=== PATIENT | female | born 1990 | race Caucasian/White ===

== ENCOUNTER 2020-03-04 06:49 | Outpatient (REF) | payer OTHER, SELFPAY ==
[2020-03-04 08:02] LABS: HCG Quantitative 2543 mIU/mL
== END 2020-03-04 06:50 | disposition home or self-care (01) ==
LOC: HO.LAB 06:49
PROVIDERS: PCP Internal Medicine; Visit Provider Advanced Practice Midwife
DX: O00.101 Right tubal pregnancy without intrauterine pregnancy (principal); Z98.890 Other specified postprocedural states
CPT/HCPCS: 36415; 84702; 99213

== ENCOUNTER 2020-03-30 15:12 | Outpatient (REF) | payer OTHER, SELFPAY ==
[2020-03-30 16:25] LABS: HCG Quantitative 247 mIU/mL
== END 2020-03-30 15:13 | disposition home or self-care (01) ==
LOC: HO.LAB 15:12
PROVIDERS: PCP Internal Medicine; Visit Provider Obstetrics & Gynecology
DX: O00.101 Right tubal pregnancy without intrauterine pregnancy (principal); K66.1 Hemoperitoneum
CPT/HCPCS: 84702

== ENCOUNTER 2020-04-21 17:08 | Outpatient (REF) | payer OTHER, SELFPAY ==
[2020-04-21 18:26] LABS: HCG Quantitative < 2 mIU/mL
== END 2020-04-21 17:09 | disposition home or self-care (01) ==
LOC: HO.LAB 17:08
PROVIDERS: PCP Internal Medicine; Visit Provider Obstetrics & Gynecology
DX: O00.101 Right tubal pregnancy without intrauterine pregnancy (principal); K66.1 Hemoperitoneum
CPT/HCPCS: 84702

== ENCOUNTER 2020-05-20 08:15 | Outpatient (REF) | payer OTHER, SELFPAY ==
[2020-06-12 09:17] LABS: CT PCR NOT DETECTED (Not Detect.); NG PCR NOT DETECTED (Not Detect.)
== END 2020-05-20 08:16 | disposition home or self-care (01) ==
LOC: HO.LAB 08:15
PROVIDERS: PCP Internal Medicine; Visit Provider Obstetrics & Gynecology
DX: N94.12 Deep dyspareunia (principal); R10.31 Right lower quadrant pain
CPT/HCPCS: 81002; 81025; 87491; 87591; 99212

== ENCOUNTER 2020-06-15 08:26 | Outpatient (REF) | payer OTHER, SELFPAY ==
--- NOTE | 2020-06-15 08:30 | US_ITS ---
EXAMINATION: US PELVIS COMPLETE CLINICAL INFORMATION: Dyspareunia. Previous history of ruptured ectopic and laparoscopic right salpingectomy. COMPARISON: Ultrasound pelvis 02/22/2020. TECHNIQUE: Transabdominal and transvaginal ultrasound of the pelvis is performed. FINDINGS: The uterus is anteverted measuring 9.4 cm in length, 3.5 cm in AP and 5.1 cm in transverse dimension. There is a slightly arcuate appearance to endometrial cavity. There is a heterogeneous-appearing myometrium and a tiny cyst in the endometrial measuring 0.3 x 0.3 x 0.2 cm. Endometrial thickness is 1.2 cm. There are small nabothian cysts in the cervix. Right ovary measures 3.9 x 1.7 x 3.3 cm and volume 11.0 mL. There are punctate echogenic foci seen. Previously right ovary measured 2.9 x 2.2 x 3.1 cm and volume 14.2 mL. The left ovary measures 4.0 x 2.3 x 2.8 cm and volume 13.5 mL. Small follicle cysts seen. A dominant follicle measures 2.1 x 1.8 x 1.9 cm. Small punctate echogenic foci are seen in the left ovary. Previously left ovary measured 1.4 x 1.8 x 2.7 cm and volume 2.6 mL. There is no free fluid in the cul-de-sac. US/US pelvic complete IMPRESSION: Heterogeneous myometrium but no focal uterine lesions seen. The endometrial cavity has an arcuate shape appearance. A small 0.3 cm cyst is seen within the endometrium. Nabothian cysts in the cervix. There are bilateral punctate echogenic foci in the ovaries. Dominant follicle left ovary measures 2.1 x 1.8 x 1.9 cm. There is no free fluid in the cul-de-sac.
== END 2020-06-15 08:27 | disposition home or self-care (01) ==
LOC: HO.HMGCX 08:26
PROVIDERS: PCP Internal Medicine; Visit Provider Obstetrics & Gynecology
DX: N94.12 Deep dyspareunia (principal)
CPT/HCPCS: 76830; 76856

== ENCOUNTER → 2020-06-21 13:08 | Outpatient (BNVA) | payer OTHER, SELFPAY | PROVIDERS: PCP Internal Medicine; Visit Provider Obstetrics & Gynecology ==

== ENCOUNTER 2020-11-11 06:29 | Outpatient (REF) | payer OTHER, SELFPAY ==
[2020-11-11 08:07] LABS: HCG Quantitative 191 mIU/mL
[2020-11-11 08:50] LABS: Glucose Urine UA NEG (NEG); Leukocyte Esterase Urine NEG (NEG); Nitrite Urine NEG (NEG); Specific Gravity - Urine >= 1.030 (1.005-1.025); Urine Blood NEG (NEG); Urine Ketones NEG (NEG); Urine Protein NEG (NEG-TRACE)
[2020-11-11 08:51] LABS: Appearance Urine CLEAR; Color Urine YELLOW
== END 2020-11-11 06:30 | disposition home or self-care (01) ==
LOC: HO.LAB 06:29
PROVIDERS: PCP Internal Medicine; Visit Provider Obstetrics & Gynecology
DX: O36.80X0 Pregnancy with inconclusive fetal viability, not applicable or unspecified (principal); O26.899 Other specified pregnancy related conditions, unspecified trimester; R30.0 Dysuria; O09.10 Supervision of pregnancy with history of ectopic pregnancy, unspecified trimester; Z3A.00 Weeks of gestation of pregnancy not specified
CPT/HCPCS: 36415; 81003; 84702

== ENCOUNTER 2020-11-13 09:32 | Outpatient (REF) | payer OTHER, SELFPAY ==
[2020-11-13 10:08] LABS: HCG Quantitative 335 mIU/mL
== END 2020-11-13 09:33 | disposition home or self-care (01) ==
LOC: HO.ED 09:32
PROVIDERS: PCP Internal Medicine
DX: Z32.01 Encounter for pregnancy test, result positive (principal); O00.101 Right tubal pregnancy without intrauterine pregnancy; O26.891 Other specified pregnancy related conditions, first trimester; K66.1 Hemoperitoneum; Z3A.00 Weeks of gestation of pregnancy not specified
CPT/HCPCS: 36415; 84702

== ENCOUNTER 2020-11-16 13:01 | Outpatient (REF) | payer OTHER, SELFPAY ==
[2020-11-16 15:10] LABS: HCG Quantitative 408 mIU/mL
== END 2020-11-16 13:02 | disposition home or self-care (01) ==
LOC: HO.LAB 13:01
PROVIDERS: Absent Provider Obstetrics & Gynecology; PCP Internal Medicine; Visit Provider Advanced Practice Midwife
DX: Z87.59 Personal history of other complications of pregnancy, childbirth and the puerperium (principal)
CPT/HCPCS: 36415; 84702; 99212

== ENCOUNTER 2020-11-18 14:57 | Outpatient (REF) | payer OTHER, SELFPAY ==
[2020-11-18 16:34] LABS: HCG Quantitative 318 mIU/mL
== END 2020-11-18 14:58 | disposition home or self-care (01) ==
LOC: HO.LAB 14:57
PROVIDERS: PCP Internal Medicine; Visit Provider Advanced Practice Midwife
DX: Z87.59 Personal history of other complications of pregnancy, childbirth and the puerperium (principal)
CPT/HCPCS: 36415; 84702

== ENCOUNTER → 2020-11-21 12:56 | Outpatient (BNVA) | payer OTHER, SELFPAY | PROVIDERS: PCP Internal Medicine; Visit Provider Advanced Practice Midwife ==

== ENCOUNTER 2020-11-23 11:17 | Outpatient (REF) | payer OTHER, SELFPAY ==
--- NOTE | ~2020-11-23 | US_ITS ---
EXAMINATION: US OBSTETRICAL ULTRASOUND CLINICAL INFORMATION: Abnormal quadrants. [Latest HCG 318. COMPARISON: None. LMP: 10/10/2020. Gestational age by maternal dates is 6 weeks 2 days. Estimated date of delivery by maternal dates is 07/17/2021. TECHNIQUE: Transabdominal imaging off pelvis was performed. FINDINGS: The uterus is anteverted with no intrauterine gestational sac, pole or yolk sac seen. Uterus measures 6.52 cm in length, 3.71 cm in AP and 5.43 cm in transverse dimension. Endometrial thickness is 0.22 cm. The right ovary measures 3.48 x 2.20 x 3.4 cm. There is a small corpus luteal cyst measuring 1.5 x 1.3 x 1.2 cm. The left ovary measures 3.0 x 1 0.63 to 1.9 cm and tiny follicular cyst. There is slight increased flow seen to left ovary on color ultrasound. There is trace amount of free fluid. No pelvic mass visualized. US/US OB <= 14 weeks fetus IMPRESSION: No intrauterine seen. No adnexal mass or ectopic seen. Corpus luteal cyst right ovary. The left ovary is unremarkable. There is a trace amount of fluid seen in the cul-de-sac.
--- NOTE | ~2020-11-23 | US_ITS ---
EXAMINATION: US OBSTETRICAL ULTRASOUND CLINICAL INFORMATION: Abnormal quadrants. [Latest HCG 318. COMPARISON: None. LMP: 10/10/2020. Gestational age by maternal dates is 6 weeks 2 days. Estimated date of delivery by maternal dates is 07/17/2021. TECHNIQUE: Transabdominal imaging off pelvis was performed. FINDINGS: The uterus is anteverted with no intrauterine gestational sac, pole or yolk sac seen. Uterus measures 6.52 cm in length, 3.71 cm in AP and 5.43 cm in transverse dimension. Endometrial thickness is 0.22 cm. The right ovary measures 3.48 x 2.20 x 3.4 cm. There is a small corpus luteal cyst measuring 1.5 x 1.3 x 1.2 cm. The left ovary measures 3.0 x 1 0.63 to 1.9 cm and tiny follicular cyst. There is slight increased flow seen to left ovary on color ultrasound. There is trace amount of free fluid. No pelvic mass visualized. US/US OB transvaginal IMPRESSION: No intrauterine seen. No adnexal mass or ectopic seen. Corpus luteal cyst right ovary. The left ovary is unremarkable. There is a trace amount of fluid seen in the cul-de-sac.
== END 2020-11-23 11:18 | disposition home or self-care (01) ==
LOC: HO.HMGCX 11:17
PROVIDERS: PCP Internal Medicine; Visit Provider Advanced Practice Midwife
DX: O09.11 Supervision of pregnancy with history of ectopic pregnancy, first trimester (principal); Z3A.01 Less than 8 weeks gestation of pregnancy
CPT/HCPCS: 76801; 76817

== ENCOUNTER → 2020-11-25 11:02 | Outpatient (BNVA) | payer OTHER, SELFPAY | PROVIDERS: PCP Internal Medicine; Visit Provider Obstetrics & Gynecology ==

== ENCOUNTER → 2020-11-30 14:21 | Outpatient (BNVA) | payer OTHER, SELFPAY | PROVIDERS: PCP Internal Medicine; Visit Provider Obstetrics & Gynecology ==

== ENCOUNTER 2020-12-07 10:24 | Outpatient (REF) | payer OTHER, SELFPAY ==
[2020-12-07 16:08] LABS: HCG Quantitative 30 mIU/mL
== END 2020-12-07 10:25 | disposition home or self-care (01) ==
LOC: HO.LAB 10:24
PROVIDERS: PCP Internal Medicine; Visit Provider Advanced Practice Midwife
DX: O03.9 Complete or unspecified spontaneous abortion without complication (principal); Z87.59 Personal history of other complications of pregnancy, childbirth and the puerperium
CPT/HCPCS: 36415; 84702

== ENCOUNTER 2021-02-15 13:05 | Outpatient (REF) | payer OTHER, SELFPAY ==
[2021-02-15 15:22] LABS: HCG Quantitative < 2 mIU/mL
== END 2021-02-15 13:06 | disposition home or self-care (01) ==
LOC: HO.LAB 13:05
PROVIDERS: PCP Internal Medicine; Visit Provider Advanced Practice Midwife
DX: O00.101 Right tubal pregnancy without intrauterine pregnancy (principal); K66.1 Hemoperitoneum; Z87.59 Personal history of other complications of pregnancy, childbirth and the puerperium
CPT/HCPCS: 36415; 84702

== ENCOUNTER 2021-02-22 13:20 | Outpatient (REF) | payer OTHER, SELFPAY ==
[2021-02-23 09:53] LABS: CT PCR NOT DETECTED (Not Detect.)
[2021-02-23 09:54] LABS: NG PCR NOT DETECTED (Not Detect.)
[2021-02-23 11:01] LABS: BV Int Neg Control Negative (Negative); BV Int Pos Control Positive (Positive)
[2021-02-25 07:07] LABS: HPV mRNA E6/E7 rflx Not Detected (Not Detected)
== END 2021-02-22 13:21 | disposition home or self-care (01) ==
LOC: HO.LAB 13:20
PROVIDERS: PCP Internal Medicine; Visit Provider Advanced Practice Midwife
DX: Z01.411 Encounter for gynecological examination (general) (routine) with abnormal findings (principal); Z11.51 Encounter for screening for human papillomavirus (HPV); Z11.3 Encounter for screening for infections with a predominantly sexual mode of transmission; R10.2 Pelvic and perineal pain; N92.0 Excessive and frequent menstruation with regular cycle; N84.1 Polyp of cervix uteri; N89.8 Other specified noninflammatory disorders of vagina
CPT/HCPCS: 81003; 87480; 87491; 87510; 87591; 87624; 87660; 88142

== ENCOUNTER 2021-03-01 09:51 | Outpatient (REF) | payer OTHER, SELFPAY ==
--- NOTE | ~2021-03-01 | US_ITS ---
EXAMINATION: US PELVIS CLINICAL INFORMATION: Pelvic and perineal pain COMPARISON: Previous pelvic ultrasound June 2020 TECHNIQUE: Ultrasound of the pelvis is performed using both transabdominal and transvaginal transducers along with Doppler. Transvaginal imaging is performed due to inadequate visualization transabdominally. FINDINGS: The uterus is anteverted and measures 7.6 x 3.4 x 5.1 cm in dimension. No focal uterine lesion is seen. Endometrial thickness is normal measuring 0.6 cm. There is a nabothian cyst in the cervix. The ovaries are normal-appearing. The right ovary measures 3.8 x 2 x 3.6 cm. The left ovary measures 2.6 x 2 x 4 cm. There is no fluid in the pelvis. US/US pelvic and transvaginal IMPRESSION: Unremarkable exam.
== END 2021-03-01 09:52 | disposition home or self-care (01) ==
LOC: HO.HMGCX 09:51
PROVIDERS: PCP Internal Medicine; Visit Provider Advanced Practice Midwife
DX: R10.2 Pelvic and perineal pain (principal); N92.0 Excessive and frequent menstruation with regular cycle
CPT/HCPCS: 76830; 76856

== ENCOUNTER 2021-03-15 09:08 | Outpatient (REF) | payer OTHER, SELFPAY ==
[2021-03-18 13:41] LABS: HPV mRNA E6/E7 rflx Not Detected (Not Detected)
== END 2021-03-15 09:09 | disposition home or self-care (01) ==
LOC: HO.LAB 09:08
PROVIDERS: PCP Internal Medicine; Visit Provider Advanced Practice Midwife
DX: N84.1 Polyp of cervix uteri (principal); R10.2 Pelvic and perineal pain; R87.615 Unsatisfactory cytologic smear of cervix; Z87.59 Personal history of other complications of pregnancy, childbirth and the puerperium; Z71.2 Person consulting for explanation of examination or test findings
CPT/HCPCS: 57500; 58558; 87624; 88142; 88305

== ENCOUNTER → 2021-04-05 11:16 | Outpatient (BNVA) | payer OTHER, SELFPAY | PROVIDERS: PCP Internal Medicine; Visit Provider Advanced Practice Midwife ==

== ENCOUNTER 2021-05-03 08:24 | Outpatient (REF) | payer OTHER, SELFPAY ==
[2021-05-04 01:24] LABS: CT PCR NOT DETECTED (Not Detect.); NG PCR NOT DETECTED (Not Detect.)
[2021-05-04 10:14] LABS: BV Int Neg Control Negative (Negative); BV Int Pos Control Positive (Positive)
== END 2021-05-03 08:25 | disposition home or self-care (01) ==
LOC: HO.LAB 08:24
PROVIDERS: PCP Internal Medicine; Visit Provider Obstetrics & Gynecology
DX: Z01.419 Encounter for gynecological examination (general) (routine) without abnormal findings (principal); R10.2 Pelvic and perineal pain; Z20.2 Contact with and (suspected) exposure to infections with a predominantly sexual mode of transmission
CPT/HCPCS: 81003; 81025; 87480; 87491; 87510; 87591; 87660; 99212

== ENCOUNTER 2021-05-25 08:33 | Outpatient (REF) | payer OTHER, SELFPAY ==
--- NOTE | ~2021-05-25 | US_ITS ---
EXAMINATION: US PELVIS CLINICAL INFORMATION: R10.2 - Pelvic and perineal pain COMPARISON: Ultrasound pelvis 03/01/2021 TECHNIQUE: Ultrasound of the pelvis is performed using both transabdominal and transvaginal transducers along with Doppler. Transvaginal imaging is performed due to inadequate visualization transabdominally. FINDINGS: Uterus: The uterus is anteverted and measures 7.9 x 4.2 x 5.1 cm. The double wall endometrial thickness is normal at 10 mm. The uterus is smooth in contour and has normal myometrial echogenicity. No visible fibroid. There is small nabothian cyst in the cervix under 5 mm. Adnexa: Both ovaries are visualized. There is normal color flow to the adnexa. There is no ovarian torsion. There is no pelvic ascites or fluid collection. Trace physiologic fluid adjacent to left ovary. Right ovary measures 3.0 x 2.7 x 2.9 cm. Volume 12.6 mL. Left ovary measures 4.0 x 2.3 x 3.0 cm. Volume 14.4 mL. US/US pelvic and transvaginal IMPRESSION: 1. Uterus: No visible fibroid. Normal endometrial thickness. 2. Adnexa: No adnexal mass or ascites.
== END 2021-05-25 08:34 | disposition home or self-care (01) ==
LOC: HO.HMGCX 08:33
PROVIDERS: PCP Internal Medicine; Visit Provider Obstetrics & Gynecology
DX: R10.2 Pelvic and perineal pain (principal); N88.8 Other specified noninflammatory disorders of cervix uteri
CPT/HCPCS: 76830; 76856

== ENCOUNTER 2021-12-02 07:47 | Outpatient (REF) | payer OTHER, SELFPAY ==
[2021-12-02 08:47] LABS: HCG Quantitative 1263 mIU/mL
== END 2021-12-02 07:48 | disposition home or self-care (01) ==
LOC: HO.LAB 07:47
PROVIDERS: PCP Internal Medicine; Visit Provider Obstetrics & Gynecology
DX: O20.0 Threatened abortion (principal); Z87.59 Personal history of other complications of pregnancy, childbirth and the puerperium
CPT/HCPCS: 36415; 84702

== ENCOUNTER 2021-12-04 08:16 | Emergency (ER) | payer OTHER, SELFPAY ==
[2021-12-04 08:21] VITALS: BP 118/62; PULSE 70; RESP 16; TEMP 36.6; O2SAT 100; BMI 28.1
[2021-12-04 09:03] LABS: HCG Quantitative 2926 mIU/mL
--- NOTE | 2021-12-04 09:45 | ED_ITS ---
HPI - General Adult General Chief complaint: Recheck/Abnormal Lab/Rx Stated complaint: blood test for HCG levels Time Seen by Provider: 12/04/21 09:08 Source: patient Mode of arrival: ambulatory Limitations: no limitations History of Present Illness HPI narrative: Patient is a 31 year old female presenting to the emergency department today for a repeat beta HCG blood draw. Patient states that she was informed she may be on 12/02/[address] Breen recommended that she come get a repeat drawn in 48 hours which would be today. Patient denies any vaginal bleeding, vaginal discharge, pelvic pain, vaginal pain, dizziness, lightheadedness, abdominal pain, nausea, vomiting, fever, chills, blurry vision, double vision, loss of vision, chest pain, difficulty breathing, shortness of b reath, back pain, night sweats, pain with urination, increased urinary frequency, increased urinary urgency, blood in her urine or stool, syncope or a near syncopal episode, recent trauma or falls, bowel incontinence, bladder incontinence, bowel retention, bladder retention, or any other complaints at this time. Relieving factors: none Exacerbating factors: none Associated symptoms: denies other symptoms Treatments prior to arrival: none Related Data Home Medications Medication Instructions Recorded Confirmed multivitamin 1 tab PO DAILY 11/30/20 Allergies Allergy/AdvReac Type Severity Reaction Status Date / Time No Known Allergies Allergy Verified 05/03/21 08:33 Review of Systems Constitutional: Constitutional: Reports no additional constitutional complaints, Denies chills, Denies fever(s) and Denies night sweats Eyes: Eyes: Reports no additional eye complaints, Denies blurry vision, Denies change in vision, Denies diplopia, Denies eye discharge, Denies loss of vision and Denies eye pain ENT: Denies dizziness Cardiovascular: Cardiovascular: Reports no additional cardiovascular complaints, Denies chest pain, Denies lightheadedness, Denies Loss of Consciousness and Denies dyspnea Respiratory: Respiratory: Reports no additional respiratory complaints and Denies dyspnea Gastrointestinal: Gastrointestinal: Reports no additional gastrointestinal complaints, Denies abdominal pain, Denies melena, Denies hematochezia, Denies change in bowel habits and Denies change in stool character Genitourinary: Genitourinary: Denies hematuria, Denies urinary frequency, Denies dysuria, Denies urinary incontinence, Denies urinary hesitancy and Denies urinary urgency Musculoskeletal: Musculoskeletal: Reports no additional musculoskeletal complaints, Denies numbness and Denies tingling Neurologic: Denies dizziness, Denies loss of vision, Denies numbness and Denies tingling Psychiatric: Psychiatric: Reports no additional psychiatric complaints Endocrine: Endocrine: Reports no additional endocrine complaints Hematologic/Lymphatic: Hematologic/Lymphatic: Reports no additional hematologic/lymphatic complaints Allergic/Immunologic: Allergic/Immunologic: Reports no additional allergic/immunologic complaints [facility] Past Medical History Attestation statement: The following information was validated with the patient. Source: old records reviewed Medical History Ruptured right tubal ectopic causing hemoperitoneum Surgical History Hx of laparoscopic partial gastrectomy Family History Family History Father Colon cancer Maternal Grandmother Breast CA Daughter No problems noted. Social History Social History Alcohol intake: never Patient Tobacco Use Status: Never used Tobacco Advance Directives: No Advance Directives Information Provided: No Sexual orientation: Straight/Heterosexual Gender identity: Female Physical Exam ED Vital Signs: Vital Signs - 24 hr 12/04/21 08:21 Temperature 97.9 F Pulse Rate 70 Respiratory Rate 16 Blood Pressure 118/62 Pulse Oximetry 100 Oxygen Delivery Method Room Air BMI result Body Mass Index 28.1 Const General: cooperative, no acute distress, alert and awake Nutritional Appearance: well nourished Orientation/consciousness: patient oriented x3 Limitations: no limitations [facility] Head: Yes normal to inspection and Yes atraumatic Ears: hearing grossly normal bilaterally and external ears normal General nose exam: Normal external nose present, no nasal discharge noted and no epistaxis Face and sinus: Yes normal facial exam, No abrasion and No laceration Mouth: Normal oral and palatal mucosa present, no drooling and no muffled voice Eyes General: appearance normal, both eyes and all related structures Periorbital: periorbital findings normal Eyelids: Yes eyelids normal Conjunctivae: conjunctivae normal Pupils: Equal, round and reactive pupils present EOM: EOMs intact bilaterally Neck Neck: Yes normal visual inspection, Yes full ROM and Yes no lymphadenopathy Chest Chest palpation & inspection: normal inspection of the chest Resp Effort & Inspection: normal respiratory effort and able to speak in complete sentences Auscultation: clear to auscultation bilaterally Cardio Rate: regular rate Rhythm: regular rhythm GI Inspection: Yes normal to inspection Neuro General: patient oriented x3 and moves all extremities Cranial nerves: Yes Equal, round and reactive pupils present Cognition (Neuro): normal cognition Motor exam (neuro): 5/5 motor strength present throughout Sensory Exam: Normal double simultaneous stimulation for sensation Coordination: [id number] test normal Extrem General: Yes normal to inspection, Yes full ROM and Yes capillary refill normal Psych Appearance: grossly normal Mental Status: mental status grossly normal Affect: normal affect Attitude: cooperative Thought process: Normal thought process present Thought content: Normal thought content present Insight: Good insight present (Psych) Medical Decision Making MDM Narrative Medical decision making narrative: Patient is a 31 year old female presenting to the emergency department today for a repeat beta HCG level. Patient's physical exam was unremarkable. Patient's beta HCG level is doubled at 2926. I explained my physical exam findings as well as all test results to the patient. I answered all questions asked by the patient. I stressed the importance of the patient taking her medication as prescribed. I stressed the importance of the patient following up with her primary care provider and her OBGYN, as scheduled. I stressed the importance of the patient returning to the emergency department immediately if she were to d evelop any vaginal bleeding, vaginal discharge, pelvic pain, vaginal pain, dizziness, shortness of breath, difficulty breathing, chest pain, blurry vision, loss of vision, nausea, vomiting, abdominal pain, fever, chills, back pain, or any other complaints. Patient verbalized agreement and understanding with this treatment plan and discharge. Differential Diagnosis Differential Diagnosis: Medical Records Medical records reviewed: Yes I reviewed the patient's medical records. Lab Data Lab results reviewed: Yes I reviewed the patient's lab results. Labs: Lab Results 12/04/21 Range/Units 08:38 Beta HCG, Quant 2926 mIU/mL Discharge Plan Discharge Clinical Impression: Elevated serum hCG Patient Disposition: Home, Self-Care Instructions: (ED) Additional Instructions: Follow up with your primary care provider and your OBGYN. Return to the emerg ency department immediately if your symptoms worsen or if you develop any dizziness, shortness of breath, difficulty breathing, chest pain, blurry vision, loss of vision, nausea, vomiting, abdominal pain, fever, chills, back pain, or any other complaints. Prescriptions: No Action multivitamin Tablet 1 tab PO DAILY Referrals: Lynette James MD [Primary Care Provider] - Sinan Breen MD [Physician] - Print Language: Pashto
== END 2021-12-04 10:07 | disposition home or self-care (01) ==
PROVIDERS: Emergency Provider Emergency Medicine Emergency Medical Services; PCP Internal Medicine
DX: Z32.01 Encounter for pregnancy test, result positive (principal)
CPT/HCPCS: 36415; 84702; 99283

== ENCOUNTER 2021-12-05 14:05 | Emergency (ER) | payer OTHER, SELFPAY ==
--- NOTE | ~2021-12-05 | US_ITS ---
EXAMINATION: US OBSTETRICAL ULTRASOUND CLINICAL INFORMATION: Left adnexal pain . 5 weeks . Bleeding. COMPARISON: 12/23/2020.. LMP: 11/03/2021. Gestational age by maternal dates is 4 weeks 5 days. Estimated date of delivery by maternal dates is 08/10/2022. TECHNIQUE: Transabdominal and endovaginal sonographic imaging of the pelvis. Doppler evaluation with spectral analysis performed. FINDINGS: Uterus measures 6.7 x 4.7 x 7.2 cm. No abnormal endometrial thickening. There are 2 areas of fluid within the region of the endometrial cavity, measuring up to 0.7 cm. No internal contents. MATERNAL ADNEXA: The right maternal ovary measures 4 x 1.4 x 1.9 cm. Normal arterial and venous spectral waveforms. The left maternal ovary measures 5.1 x 3.1 x 3.7 cm. Normal arterial and venous spectral waveforms. There is a prominent appearing simple cyst in the left ovary. Adjacent to the left ovary there is a separate cystic structure with a thick wall in the rim of mild vascularity. This measures 0.8 x 0.6 x 0.5 cm. There is an internal structure which appears to be a yolk sac. No pole identified. As a gestational sac, this has a mean sac diameter of 0.63 cm for a gestational age of 5 weeks 1 day. Trace pelvic ascites. US/US OB <= 14 weeks fetus IMPRESSION: Cystic structure in the left adnexa consistent with a tubal ectopic . There is the appearance of a yolk sac within this structure, though no pole is seen. There is no intrauterine identified, with small areas of fluid in the endometrial canal. This critical result was discussed with Selena Rivera NP by telephone at 12/06/2021 1:25 AM and it was ascertained that the content and urgency of the report was understood at the time of direct communication.
--- NOTE | ~2021-12-05 | US_ITS ---
EXAMINATION: US OBSTETRICAL ULTRASOUND CLINICAL INFORMATION: Left adnexal pain . 5 weeks . Bleeding. COMPARISON: 12/23/2020.. LMP: 11/03/2021. Gestational age by maternal dates is 4 weeks 5 days. Estimated date of delivery by maternal dates is 08/10/2022. TECHNIQUE: Transabdominal and endovaginal sonographic imaging of the pelvis. Doppler evaluation with spectral analysis performed. FINDINGS: Uterus measures 6.7 x 4.7 x 7.2 cm. No abnormal endometrial thickening. There are 2 areas of fluid within the region of the endometrial cavity, measuring up to 0.7 cm. No internal contents. MATERNAL ADNEXA: The right maternal ovary measures 4 x 1.4 x 1.9 cm. Normal arterial and venous spectral waveforms. The left maternal ovary measures 5.1 x 3.1 x 3.7 cm. Normal arterial and venous spectral waveforms. There is a prominent appearing simple cyst in the left ovary. Adjacent to the left ovary there is a separate cystic structure with a thick wall in the rim of mild vascularity. This measures 0.8 x 0.6 x 0.5 cm. There is an internal structure which appears to be a yolk sac. No pole identified. As a gestational sac, this has a mean sac diameter of 0.63 cm for a gestational age of 5 weeks 1 day. Trace pelvic ascites. US/US OB transvaginal IMPRESSION: Cystic structure in the left adnexa consistent with a tubal ectopic . There is the appearance of a yolk sac within this structure, though no pole is seen. There is no intrauterine identified, with small areas of fluid in the endometrial canal. This critical result was discussed with Selena Rivera NP by telephone at 12/06/2021 1:25 AM and it was ascertained that the content and urgency of the report was understood at the time of direct communication.
[2021-12-05 14:57] VITALS: BP 117/63; PULSE 70; RESP 16; TEMP 36.4; O2SAT 100; BMI 28.1
[2021-12-05 20:03] LABS: Hemoglobin 10.4 g/dl (12.0-16.0); Mean Corpuscular HGB Conc 29.7 g/dl (31.0-35.0); Mean Corpuscular Hemoglobin 21.5 pg (27.0-33.0); Mean Corpuscular Volume 72.5 fL (80.0-98.0); Platelet Count 337 X10*3/uL (160-400); Red Blood Count 4.83 X10*6/uL (4.20-5.50); Red Cell Distribution Width 17.2 % (11.0-16.0); White Blood Count 9.7 X10*3/uL (4.8-10.8)
[2021-12-05 20:13] LABS: Anion Gap 14 (12-20); Blood Urea Nitrogen 13 mg/dL (9-16); Calcium 9.1 mg/dL (8.4-10.2); Carbon Dioxide 22 mmol/L (22-29); Chloride 107 mmol/L (96-108); Creatinine Clr Calc Pharmacy 110.2; Estimated Glomerular Filt Rate > 60; Glucose Random 82 mg/dL (60-115); Potassium 3.9 mmol/L (3.3-5.1); Sodium 139 mmol/L (135-145)
[2021-12-05 22:25] VITALS: BP 122/67; PULSE 67; RESP 16; TEMP 37.1; O2SAT 100
--- NOTE | 2021-12-05 23:08 | ED.PREGNANCY ---
HPI - General Chief complaint: Vaginal Bleeding Stated complaint: vaginal bleeding and pain Time Seen by Provider: 12/05/21 14:18 Source: patient Mode of arrival: ambulatory Limitations: no limitations History of Present Illness HPI Narrative: 31-year-old female presents with left lower quadrant abdominal pain and vaginal bleeding that started today. She is approximately 5 weeks and has a history of ectopic and miscarriage. She does not report fevers or chills. MD Complaint: abdominal pain and vaginal bleeding Onset (ago): day(s) (1) Pain Consistency: intermittent Location: pelvis Severity: moderate Severity scale (1-10): 6 Quality: Cramping Relieving factors: none Exacerbating factors: none Associated symptoms: vaginal bleeding Vaginal discharge: none Vaginal bleeding: light Patient : Yes care: followed by OB Related Data Home Medications Medication Instructions Recorded Confirmed multivitamin 1 tab PO DAILY 11/30/20 Allergies Allergy/AdvReac Type Severity Reaction Status Date / Time No Known Allergies Allergy Verified 12/05/21 15:01 Review of Systems Review of Systems: Constitutional: No Fever, No Chills ENT/Mouth: No Ear Pain, No Hoarseness, No sore throat Eyes: No Eye Pain, No Swelling, No Redness, No Foreign Body Cardiovascular: No Chest Pain, No SOB Respiratory: No Cough, No Dyspnea Gastrointestinal: No Nausea, No Vomiting, No Diarrhea, positive abdominal Pain Genitourinary: Positive vaginal bleeding, positive , No Dysuria, No Hematuria Musculoskeletal: No joint pain, No Myalgias, No Joint Swelling Skin: No Skin lacerations, No rash Neuro: No Weakness, No Numbness, No Paresthesias, No Loss of Consciousness, No Dizziness, No Headache Psych: No Anxiety/Panic, No Depression Heme/Lymph: no easy bruising, no Lymphadenopathy Endocrine: No Polyuria, No Polydipsia Yes all other systems are reviewed and are negative [facility] Past Medical History Attestation statement: The following information was validated with the patient. Source: old records reviewed Medical History Ruptured right tubal ectopic causing hemoperitoneum Surgical History Hx of laparoscopic partial gastrectomy Family History Family History Father Colon cancer Maternal Grandmother Breast CA Daughter No problems noted. Social History Social History Alcohol intake: never Patient Tobacco Use Status: Never used Tobacco Advance Directives: No Advance Directives Information Provided: No Patient : Yes Sexual orientation: Straight/Heterosexual Gender identity: Female Physical Exam Vital Signs: Vital Signs: Last Vital Signs Temp 97.9 F 12/06/21 00:00 Pulse 70 12/06/21 00:00 Resp 16 12/06/21 00:00 BP 120/83 12/06/21 00:00 Pulse Ox 100 12/06/21 00:00 O2 Del Method 12/06/21 00:00 BMI result Body Mass Index 28.1 Appearance: Alert. Oriented X3. No acute distress. Eyes: Pupils equal, round and reactive to light. ENT: Pharynx normal. Neck: Normal inspection. Neck supple. CVS: Normal heart rate and rhythm. Pulses normal. Respiratory: No respiratory distress. Breath sounds normal. Abdomen: Soft and left adnexal tenderness. Skin: Skin warm and dry. Normal skin color. Normal skin turgor. Extremities: No lower extremity edema. Gait well-balanced well coordinated. Neuro: No motor deficit. No sensory deficit. Cranial nerves 2-12 intact. Course Course Course Narrative: 31-year-old female presents with suspicion of left-sided ectopic . She has a history of right-sided ectopic with a right salpingectomy. Has had 1 day of cramping and vaginal bleeding. Is being followed by Dr. Nuha Vicente and was last seen on December 02 and given instructions for threatened . Will order ABO and pelvic ultrasound. 01:30 discussion with Radiology, cystic structure in the left adnexa consistent with tubal ectopic. There is a yolk sac within the structure. No pole. No intrauterine identified. 01:35 discussion with patient regarding findings. Emotional support provided. Patient states that she feels comfortable and does not require any pain management at this time. All patient's questions were answered. 01:[address] Breen. Plan is for methotrexate. Detailed discussion with Dr. Breen about methotrexate administration, criteria, and patient teaching. 02:13 discussion with patient regarding methotrexate administration, signs and symptoms indicating need for emergent intervention, need for follow-up hCG on day 4 and 7. Patient agrees to follow-up with Dr. Breen in the office tomorrow. Does understand no intercourse or send strenuous exercise, no folic acid and stop vitamin. No exposure to the sun for approximately 1 week. Consents have been signed. Consultations Consultation #1: Nuha Time: 02:30 MDM - OB/Uterine Contractions MDM Narrative Medical decision making narrative: Threatened , ectopic , Medical Records Attestation: I reviewed the patient's medical records. Lab Data Attestation: I reviewed the patient's lab results. Result diagrams: 12/05/21 19:55 12/05/21 19:55 Labs: Lab Results 12/05/21 12/05/21 12/05/21 Range/Units 19:55 19:55 19:55 WBC 9.7 (4.8-10.8) X10*3/uL RBC 4.83 (4.20-5.50) X10*6/uL Hgb 10.4 L (12.0-16.0) g/dl Hct 35.0 L (37.0-47.0) % MCV 72.5 L (80.0-98.0) fL MCH 21.5 L (27.0-33.0) pg MCHC 29.7 L (31.0-35.0) g/dl RDW 17.2 H (11.0-16.0) % Plt Count 337 (160-400) X10*3/uL MPV 10.0 (9.4-12.3) fL Absolute Nucleated RBC 0.000 (0.0-0.012) X10*3/uL Nucleated RBC % (auto) 0.0 (0.0-0.2) /100WBC Sodium 139 (135-145) mmol/L Potassium 3.9 (3.3-5.1) mmol/L Chloride 107 (96-108) mmol/L Carbon Dioxide 22 (22-29) mmol/L Anion Gap 14 (12-20) BUN 13 (9-16) mg/dL Creatinine 0.75 (0.5-1.4) mg/dL Estim Creat Clear Calc 110.2 Estimated GFR > 60 Random Glucose 82 (60-115) mg/dL Calcium 9.1 (8.4-10.2) mg/dL Total Bilirubin 0.5 (0.0-1.0) mg/dL Direct Bilirubin 0.2 (0.0-0.5) mg/dL AST 16 (5-31) U/L ALT 16 (0-31) U/L Alkaline Phosphatase 50 (39-117) U/L Total Protein 7.6 (6.5-8.0) g/dL Albumin 4.7 (3.5-5.0) g/dL Beta HCG, Quant 3698 mIU/mL Blood Type B Positive Imaging Data ultrasound: Attestation: I personally reviewed and interpreted this imaging study as follows: Radiologist's impression: FINDINGS: Uterus measures 6.7 x 4.7 x 7.2 cm. No abnormal endometrial thickening. There are 2 areas of fluid within the region of the endometrial cavity, measuring up to 0.7 cm. No internal contents. MATERNAL ADNEXA: ? ? The right maternal ovary measures 4 x 1.4 x 1.9 cm.? Normal arterial and venous spectral waveforms. The left maternal ovary measures 5.1 x 3.1 x 3.7 cm.? Normal arterial and venous spectral waveforms. There is a prominent appearing simple cyst in the left ovary. Adjacent to the left ovary there is a separate cystic structure with a thick wall in the rim of mild vascularity. This measures 0.8 x 0.6 x 0.5 cm. There is an internal structure which appears to be a yolk sac. No pole identified. As a gestational sac, this has a mean sac diameter of 0.63 cm for a gestational age of 5 weeks 1 day. Trace pelvic ascites. US/US OB <= 14 weeks fetus IMPRESSION: Cystic structure in the left adnexa consistent with a tubal ectopic . There is the appearance of a yolk sac within this structure, though no pole is seen. There is no intrauterine identified, with small areas of fluid in the endometrial canal. ? This critical result was discussed with Selena Rivera NP by telephone at 12/06/2021 1:25 AM and it was ascertained that the content and urgency of the report was understood at the time of direct communication. Discharge Plan Discharge Clinical Impression: Ectopic Patient Disposition: Home, Self-Care Instructions: Methotrexate (By injection), Ectopic (DC) Additional Instructions: You were evaluated for abdominal pain and vaginal bleeding during pelvic ultrasound indicates an ectopic to the left fallopian tube. We treated you with methotrexate. Please follow the instructions that were discussed with you in detail. No intercourse or strenuous exercise. No folic acid. vitamins. No sun exposure for at least 1 week. No alcohol use for at least 1 week. Please follow-up with Dr. Breen tomorrow. He is expecting you in the office. Please call and the office will give you a time of arrival. You must present on day 4 and day 7 after methotrexate for lab values. Please return to the emergency department immediately for any excessive bleeding, new, concerning, or worsening symptoms. Prescriptions: No Action multivitamin Tablet 1 tab PO DAILY Referrals: Sinan Breen MD [Physician] - 1 day (Call tomorrow for an appointment) Interventions: LWBS Worksheet Last Done: 12/05/21 17:57
[2021-12-05 23:24] LABS: HCG Quantitative 3698 mIU/mL
[2021-12-06] VITALS: BP 120/83; PULSE 70; RESP 16; TEMP 36.6; O2SAT 100
--- NOTE | 2021-12-06 01:58 | P.CONOB_ITS ---
NEUROLOGY EPILEPSY PHYSICIAN - CN: HPI Data of Consult Consult date: 12/06/21 Primary Care Provider: Lynette James MD Consult Narrative Narrative: I was consulted on Maria Dolores Doran who is a 31 year old female who presented to the emergency room with left lower quadrant abdominal pain and mild vaginal bleeding that started few hours prior to presentation.? She is approximately 5 weeks of gestation with a history of ectopic no other additional complaints. HCG on 12/02 was 1263 went up to 2926 on 12/04. The workup done emergency room include the following CBC platelets within normal, Rh positive, hCG 3698. Ultrasound showed no IUP with a left adnexal mass measuring 0.8 x 0.6 x 0.5 cm internal structure appearing like a yolk sac and a gestational sac measuring 0.63 cm , no pole, suspicious for ectopic . 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 Surgical History Surgical History Hx of laparoscopic partial gastrectomy Social History Social History Alcohol intake: never Patient Tobacco Use Status: Never used Tobacco Advance Directives: No Advance Directives Information Provided: No Patient : Yes Sexual orientation: Straight/Heterosexual Gender identity: Female Meds Allergies Allergy/AdvReac Type Severity Reaction Status Date / Time No Known Allergies Allergy Verified 12/05/21 15:01 Home Medications Medication Instructions Recorded Confirmed Last Taken Type multivitamin 1 tab PO DAILY 11/30/20 Unknown History NEUROLOGY EPILEPSY PHYSICIAN Physical Exam Vitals Vital signs: Temp Pulse Resp BP Pulse Ox O2 Del Method 97.9 F 70 16 120/83 100 12/06/21 00:00 12/06/21 00:00 12/06/21 00:00 12/06/21 00:00 12/06/21 00:00 12/06/21 00:00 BMI result Body Mass Index 28.1 Constitutional General Appearance: Healthy appearing, Well-nourished and Well-developed Additional Comments: Exam reported by varun Mullen in the emergency room, abdominal exam to be soft , benign exam NEUROLOGY EPILEPSY PHYSICIAN - Results Labs CBC & Chem 7: 12/05/21 19:55 12/05/21 19:55 Labs: Short CBC 12/05/21 Range/Units 19:55 WBC 9.7 (4.8-10.8) X10*3/uL Hgb 10.4 L (12.0-16.0) g/dl Hct 35.0 L (37.0-47.0) % Plt Count 337 (160-400) X10*3/uL BMP 12/05/21 19:55 Sodium 139 Potassium 3.9 Chloride 107 Carbon Dioxide 22 BUN 13 Creatinine 0.75 Calcium 9.1 Imaging US - abdomen: Radiologist's impression: ITS Impressions Ultrasound 12/06/21 00:55 IMPRESSION: Cystic structure in the left adnexa consistent with a tubal ectopic . There is the appearance of a yolk sac within this structure, though no pole is seen. There is no intrauterine identified, with small areas of fluid in the endometrial canal. This critical result was discussed with Selena Goodman NP by telephone at 12/06/2021 1:25 AM and it was ascertained that the content and urgency of the report was understood at the time of direct communication. Transvaginal US 12/06/21 00:55 IMPRESSION: Cystic structure in the left adnexa consistent with a tubal ectopic . There is the appearance of a yolk sac within this structure, though no pole is seen. There is no intrauterine identified, with small areas of fluid in the endometrial canal. This critical result was discussed with Selena Goodman NP by telephone at 12/06/2021 1:25 AM and it was ascertained that the content and urgency of the report was understood at the time of direct communication. Assessment and Plan (1) Ectopic : Status: Acute Plan Discussed with Selena Goodman NP that since the level of hCG above 3500, and the findings on ultrasound showing a 0.8 mass left adnexal mass with no evidence of intrauterine , the clinical situation is suspicious of ectopic . In addition, discussed with Selena Goodman NP that since the patient clinical situation is stable, minimal abdominal/pelvic pain with benign abdominal findings on physical exam, no pelvic fluid, there is no evidence of ruptured ectopic . Furthermore, since the size of the adnexal mass being less than 3.5 cm, absence of heart rate and hCG less than 5000 with normal platelets and creatinine, I asked Selena Goodman NP to check AST/ALT if within normal, the patient will be a candidate for methotrexate treatment. Recommended to discussed with the patient the following risks and benefits of methotrexate treatment including but not limited to: Failure rate of MTX ~15%, possible exposure of methotrexate teratogenicity to an early intrauterine not diagnosed by ultrasound with the risk of SAB and severe deformities, possibility of a early intrauterine . In addition, I recommended to discuss with the patient the following common side effects of the medication, including skin rash, sensitivity to the sun, indigestion, nausea, sore mouth were discussed with the patient. Less common side effects (occurring in less than 2% of patients) were also discussed a drop in blood cell counts or temporary elevation in liver enzymes. If the patient agrees, to proceed with methotrexate 50 mg/m2 BSA x 1.87 m2 BSA = 93.5 mg methotrexate IM x 1. I recommended to provide the patient with methotrexate Patient information sheet and instruct the patient not to have intercourse or perform strenuous exercises or activities avoid sun exposure The patient is to be given to the instructions to follow up with HCG day 4 and 7 and follow up with an appointment today in the office. Signs and symptoms of ruptured ectopic to be discussed with the patient, she is to call or go to the ER if abdominal pain occurs, Otherwise will follow up with HCG day 4 and repeat HCG day 7 and a follow-up appointment. I spent 30 minutes reviewing the chart, communicating with the ER provider and documenting in the medical record
[2021-12-06 02:18] LABS: Alanine Aminotransferase 16 U/L (0-31); Albumin Level 4.7 g/dL (3.5-5.0); Alkaline Phosphatase 50 U/L (39-117); Aspartate Amino Transferase 16 U/L (5-31); Bilirubin Direct 0.2 mg/dL (0.0-0.5); Bilirubin Total 0.5 mg/dL (0.0-1.0); Total Protein 7.6 g/dL (6.5-8.0)
--- NOTE | 2021-12-06 02:48 | PC.NURSE ---
Selena Rivera JAVA SYSTEMS ANALYST at bedside reviewing indications/recommendations for use of methotrexate due to pt's ectopic .
--- NOTE | 2021-12-06 03:16 | PC.NURSE ---
Per Myke the nursing duct layer supervisor, jony Castillo RN to administer methotrexate to pt following protocol and proper disposal of medication per Trudy protocol since no oncology nurse is on duty at night in the hospital.
[2021-12-06 03:58] VITALS: BP 113/64; PULSE 69; RESP 18; TEMP 36.8; O2SAT 100
--- NOTE | 2021-12-06 03:58 | PC.NURSE ---
pt was not a LWT. pt received treatment in the main ed.
[2021-12-06 04:34] VITALS: BP 105/71; PULSE 60; RESP 16; TEMP 36.9; O2SAT 98
== END 2021-12-06 05:00 | disposition home or self-care (01) ==
PROVIDERS: Emergency Medicine; Emergency Provider Nurse Practitioner Family; PCP Internal Medicine
DX: O20.9 Hemorrhage in early pregnancy, unspecified (principal); Z3A.01 Less than 8 weeks gestation of pregnancy; Z79.899 Other long term (current) drug therapy
CPT/HCPCS: 36415; 76801; 76817; 80048; 80076; 84702; 85027; 86900; 86901; 96372; 99283; 99284; J9250

== ENCOUNTER 2021-12-08 11:55 | Day surgery (SDC) | payer OTHER, SELFPAY ==
[2021-12-08] VITALS (8 sets, daily range): BP systolic 96–121; BP diastolic 57–66; PULSE 74–89; RESP 16–17; TEMP 36.5–36.9; O2SAT 96–100; BMI 29.1
--- NOTE | ~2021-12-08 | US_ITS ---
EXAMINATION: US OBSTETRICAL ULTRASOUND CLINICAL INFORMATION: Suspect ruptured ectopic . Patient is on methotrexate. COMPARISON: Previous exam 12/06/2021 LMP: 11/03/2021. TECHNIQUE: Transabdominal and transvaginal pelvic ultrasound. FINDINGS: The uterus measures 11 x 4.4 x 5.6 cm. No intrauterine is seen. Endometrial thickness measures 0.8 cm. No focal uterine lesion is seen. There is a complex left adnexal lesion that is partially solid and partially cystic. Cystic component measures 7 x 6 x 8 mm. This measured 8 x 6 x 5 mm on previous exam and does not appear appreciably changed in size. Question yolk sac is no longer seen. Peripheral solid component measures 2.5 cm in diameter compared to 1.7 cm on previous exam and is increased in size. The left ovary measures. 4.6 x 2.9 x 3.8 cm and contains a 3.1 x 2.3 x 2.5 cm cyst. The right ovary is normal-appearing and measures 2.8 x 1.9 x 2.2 cm. There is no fluid in the pelvis. US/US OB pelvic and transvaginal IMPRESSION: No intrauterine seen. Interval increase in size in the complex partially solid partially cystic left adnexal lesion suggestive of ectopic . Questioned yolk sac is no longer seen. No fluid in the pelvis. Findings will be communicated by the [place] work flow bowling ball patcher.
--- NOTE | 2021-12-08 12:00 | ED.ABDPAIN ---
HPI - Abdominal Pain General Chief Complaint: Abdominal Pain Stated Complaint: abd pain Time Seen by Provider: 12/08/21 11:58 Source: patient, EMS and old records reviewed Mode of arrival: EMS Limitations: no limitations History of Present Illness MD elicited complaint: abdominal pain Pertinent past history: other (known left ectopic ) Onset (ago): minute(s) (30) Pain Consistency: constant Location: LLQ Severity: severe Quality: stabbing Radiation: none Migration to: no migration Exacerbating factors: movement Relieving factors: nothing Context: other (known left ectopic , received methotrexate Saturday) Associated symptoms: nausea Related Data Previous Rx's Medication Instructions Recorded oxycodone 5 mg capsule 5 mg PO Q4H PRN pain #20 caps 12/08/21 Allergies Allergy/AdvReac Type Severity Reaction Status Date / Time No Known Allergies Allergy Verified 12/08/21 12:58 Review of Systems Review of Systems Constitutional : No Weight loss, No Fever, No Chills ENT/Mouth : No sore throat, No Rhinorrhea Eyes: No Swelling, No Redness Cardiovascular : No Chest Pain, No SOB, NoEdema Respiratory : No Cough, No Sputum, No Wheezing Gastrointestinal : Positive Nausea, no Vomiting, no Diarrhea, positive abdominal Pain, No Hematochezia, No Melena Genitourinary : No Dysuria, No Urinary Frequency, No Hematuria, No Urgency Musculoskeletal : No joint pain, No Myalgias, No Joint Swelling Skin : No Skin Lesions, No rash Neuro : No Weakness, No Numbness, No Dizziness, No Headache Psych : No Anxiety/Panic, No Depression Heme/Lymph: No Bruising, No Lymphadenopathy Endocrine : No Polyuria, No Polydipsia All other systems reviewed and are negative. [facility] Past Medical History Attestation statement: The following information was validated with the patient. Medical History Ectopic Ectopic Ruptured right tubal ectopic causing hemoperitoneum Surgical History Bariatric surgery status Hx of laparoscopic partial gastrectomy Family History Family History Father Colon cancer Maternal Grandmother Breast CA Daughter No problems noted. Social History Social History Alcohol intake: never Patient Tobacco Use Status: Never used Tobacco Second Hand Smoke Exposure: No Use of substances other than those prescribed or required for medical reasons: No Are you DNR?: No Advance Directives: No Advance Directives Information Provided: Yes Advance Directives on File: No Sexual orientation: Straight/Heterosexual Gender identity: Female Physical Exam ED Vital Signs: Vital Signs - 24 hr 12/08/21 12:03 12/08/21 13:43 12/08/21 15:38 Temperature 98.4 F 98.2 F 97.7 F Pulse Rate 74 81 88 Respiratory Rate 16 16 Blood Pressure 117/66 120/66 96/59 L Pulse Oximetry 96 100 Oxygen Delivery Method Room Air Nasal Cannula Oxygen Flow Rate 2 12/08/21 15:43 12/08/21 15:48 12/08/21 15:53 Temperature Pulse Rate 83 79 83 Respiratory Rate 17 16 16 Blood Pressure 112/59 L 96/63 121/57 L Pulse Oximetry 100 100 100 Oxygen Delivery Method Nasal Cannula Nasal Cannula Nasal Cannula Oxygen Flow Rate 2 2 2 BMI result Body Mass Index 29.1 Appearance: Alert. Oriented X3. in pain mild acute distress. Eyes: Pupils equal, round and reactive to light. ENT: Pharynx normal. Neck: Normal inspection. Neck supple. CVS: Normal heart rate and rhythm. Pulses normal. Respiratory: No respiratory distress. Breath sounds normal. Abdomen: Soft and ttp in lower abdomen with rebound Skin: Skin warm and dry. Normal skin color. Normal skin turgor. Extremities: No lower extremity edema. No calf ttp Neuro: Oriented X 3. No motor deficit. No sensory deficit. Procedures FAST Exam FAST Exam 1: Fluid in Morison's pouch: No Fluid in Splenorenal Junction: No Fluid around bladder, Transverse view: No Fluid around bladder, Sagittal view: No Fluid in Pericardial Sac: No Gross Wall Motion Abnormality: No Study normal for this patient: No Images saved for further review: No Course Course Course Narrative: Dr. Breen aware of patient and in ED 1223pm to go to OR with Nuha [facility] - Abdominal Pain MDM Narrative Medical decision making narrative: 31 yo female with known L ectopic received methotrexate Saturday AM 30 minutes prior to arrival abrupt onset left lower abdominal pain - IV, FAST exam, labs, type and screen IV fentanyl for pain, call to OB for presumed ruptured ectopic Lab Data Result diagrams: 12/08/21 12:04 12/08/21 12:07 Labs: Lab Results 12/08/21 12/08/21 12/08/21 Range/Units 12:03 12:04 12:05 WBC 8.4 (4.8-10.8) X10*3/uL RBC 4.31 (4.20-5.50) X10*6/uL Hgb 9.5 L (12.0-16.0) g/dl Hct 30.7 L (37.0-47.0) % MCV 71.2 L (80.0-98.0) fL MCH 22.0 L (27.0-33.0) pg MCHC 30.9 L (31.0-35.0) g/dl RDW 17.2 H (11.0-16.0) % Plt Count 282 (160-400) X10*3/uL MPV 10.3 (9.4-12.3) fL Immature Gran % (Auto) 0.5 H (0.0-0.4) % Neut % (Auto) 73.6 H (45-73) % Lymph % (Auto) 19.3 L (20-40) % Hanson % (Auto) 5.7 (2-11) % Eos % (Auto) 0.4 (0-4) % Baso % (Auto) 0.5 (0-2) % Lymph # (Auto) 1.6 (1.2-4.9) X10*3/uL Hanson # (Auto) 0.5 (0.1-1.2) X10*3/uL Eos # (Auto) 0.0 (0.0-0.4) X10*3/uL Baso # (Auto) 0.0 (0.0-0.2) X10*3/uL Abs Immat Gran (auto) 0.04 H (0.00-0.03) X10*3/uL Absolute Neuts (auto) 6.2 (2.0-8.3) x10*3/uL Absolute Nucleated RBC 0.000 (0.0-0.012) X10*3/uL Nucleated RBC % (auto) 0.0 (0.0-0.2) /100WBC PT 11.5 (10.0-13.1) SEC INR 1.0 (0.9-1.1) Sodium (135-145) mmol/L Potassium (3.3-5.1) mmol/L Chloride (96-108) mmol/L Carbon Dioxide (22-29) mmol/L Anion Gap (12-20) BUN (9-16) mg/dL Creatinine (0.5-1.4) mg/dL Estim Creat Clear Calc Estimated GFR Random Glucose (60-115) mg/dL Calcium (8.4-10.2) mg/dL Total Bilirubin (0.0-1.0) mg/dL Direct Bilirubin (0.0-0.5) mg/dL AST (5-31) U/L ALT (0-31) U/L Alkaline Phosphatase (39-117) U/L Total Protein (6.5-8.0) g/dL Albumin (3.5-5.0) g/dL Beta HCG, Quant mIU/mL Chlam trachomat DNA PCR (Not Detect.) COVID-19 ([facility]) Negative (Negative) COVID-19 Clin Com See Note N.gonorrhoeae DNA (PCR) (Not Detect.) Blood Type Antibody Screen 12/08/21 12/08/21 12/08/21 Range/Units 12:07 12:08 13:34 WBC (4.8-10.8) X10*3/uL RBC (4.20-5.50) X10*6/uL Hgb (12.0-16.0) g/dl Hct (37.0-47.0) % MCV (80.0-98.0) fL MCH (27.0-33.0) pg MCHC (31.0-35.0) g/dl RDW (11.0-16.0) % Plt Count (160-400) X10*3/uL MPV (9.4-12.3) fL Immature Gran % (Auto) (0.0-0.4) % Neut % (Auto) (45-73) % Lymph % (Auto) (20-40) % Hanson % (Auto) (2-11) % Eos % (Auto) (0-4) % Baso % (Auto) (0-2) % Lymph # (Auto) (1.2-4.9) X10*3/uL Hanson # (Auto) (0.1-1.2) X10*3/uL Eos # (Auto) (0.0-0.4) X10*3/uL Baso # (Auto) (0.0-0.2) X10*3/uL Abs Immat Gran (auto) (0.00-0.03) X10*3/uL Absolute Neuts (auto) (2.0-8.3) x10*3/uL Absolute Nucleated RBC (0.0-0.012) X10*3/uL Nucleated RBC % (auto) (0.0-0.2) /100WBC PT (10.0-13.1) SEC INR (0.9-1.1) Sodium 135 (135-145) mmol/L Potassium 4.1 (3.3-5.1) mmol/L Chloride 105 (96-108) mmol/L Carbon Dioxide 20 L (22-29) mmol/L Anion Gap 14 (12-20) BUN 8 L (9-16) mg/dL Creatinine 0.73 (0.5-1.4) mg/dL Estim Creat Clear Calc 79.2 Estimated GFR > 60 Random Glucose 90 (60-115) mg/dL Calcium 8.9 (8.4-10.2) mg/dL Total Bilirubin 0.4 (0.0-1.0) mg/dL Direct Bilirubin 0.3 (0.0-0.5) mg/dL AST 25 (5-31) U/L ALT 17 (0-31) U/L Alkaline Phosphatase 52 (39-117) U/L Total Protein 7.6 (6.5-8.0) g/dL Albumin 4.5 (3.5-5.0) g/dL Beta HCG, Quant 6833 mIU/mL Chlam trachomat DNA PCR NOT DETECTED (Not Detect.) COVID-19 ([facility]) (Negative) COVID-19 Clin Com N.gonorrhoeae DNA (PCR) NOT DETECTED (Not Detect.) Blood Type B Positive Antibody Screen NEGATIVE Critical Care Time Critical Care Time Critical Care Time: Yes Total Critical Care Time: 45 Attestation: review of records, IVF, bedside medical consult, admission to OR I attest to this time spent taking care of the patient Discharge Plan Discharge Clinical Impression: Ectopic Patient Disposition: Admitted As Inpatient Interventions: Admission Worksheet (ED) Last Done: 12/08/21 13:43
[2021-12-08 12:12] LABS: MANUAL DIFF FLAG NO
[2021-12-08] MEDS: fentaNYL citrate/PF 100 MCG/2 ML VIAL 50 MCG IVPUSH (12:12)
[2021-12-08] MEDS: ondansetron HCL 4 MG/2 ML VIAL IVPUSH (12:12)
[2021-12-08] MEDS: 0.9 % Sodium Chloride 1,000 ML 999 ML IVCONT (12:13)
[2021-12-08 12:16] LABS: Basophils Percent Auto 0.5 % (0-2); Eosinophils Percent Auto 0.4 % (0-4); Hematocrit 30.7 % (37.0-47.0); Hemoglobin 9.5 g/dl (12.0-16.0); Imm Gran Abs Auto 0.04 X10*3/uL (0.00-0.03); Imm Gran Pct Auto 0.5 % (0.0-0.4); Lymphocytes Absolute Auto 1.6 X10*3/uL (1.2-4.9); Lymphocytes Percent Auto 19.3 % (20-40); Mean Corpuscular HGB Conc 30.9 g/dl (31.0-35.0); Mean Corpuscular Volume 71.2 fL (80.0-98.0); Mean Platelet Volume 10.3 fL (9.4-12.3); Monocytes Absolute Auto 0.5 X10*3/uL (0.1-1.2); Monocytes Percent Auto 5.7 % (2-11); Neutrophils Absolute Auto 6.2 x10*3/uL (2.0-8.3); Neutrophils Percent Auto 73.6 % (45-73); Platelet Count 282 X10*3/uL (160-400); Red Blood Count 4.31 X10*6/uL (4.20-5.50); Red Cell Distribution Width 17.2 % (11.0-16.0); White Blood Count 8.4 X10*3/uL (4.8-10.8)
[2021-12-08 12:21] LABS: Prothrombin Time 11.5 SEC (10.0-13.1)
[2021-12-08 12:36] LABS: HCG Quantitative 6833 mIU/mL
[2021-12-08 12:38] LABS: COVID-19 Test Negative (Negative); IDNOW Serial# 16C4AD1C
[2021-12-08 12:45] LABS: Alanine Aminotransferase 17 U/L (0-31); Albumin Level 4.5 g/dL (3.5-5.0); Alkaline Phosphatase 52 U/L (39-117); Anion Gap 14 (12-20); Aspartate Amino Transferase 25 U/L (5-31); Bilirubin Direct 0.3 mg/dL (0.0-0.5); Bilirubin Total 0.4 mg/dL (0.0-1.0); Blood Urea Nitrogen 8 mg/dL (9-16); Calcium 8.9 mg/dL (8.4-10.2); Carbon Dioxide 20 mmol/L (22-29); Chloride 105 mmol/L (96-108); Creatinine Clr Calc Pharmacy 79.2; Estimated Glomerular Filt Rate > 60; Glucose Random 90 mg/dL (60-115); Potassium 4.1 mmol/L (3.3-5.1); Sodium 135 mmol/L (135-145); Total Protein 7.6 g/dL (6.5-8.0)
--- NOTE | 2021-12-08 13:05 | PM.GYNCN ---
DISTRIBUTED GENERATION PROJECT MANAGER - CN: HPI Data of Consult Consult date: 12/08/21 Primary Care Provider: Unknown Physician Consult Narrative Narrative: I was consulted on Maria Dolores Doran who is a 31 year old female who is presenting to the emergency room visit with worsening left lower quadrant pain associated with vaginal spotting, nausea, no vomiting.? The patient presented to the emergency room 2 days ago at approximately 5 weeks of gestation with left lower quadrant abdominal pain and mild vaginal bleeding that started few hours prior to presentation.? She has a history of R tubal ectopic s/p R partial salpingectom.? The patient was diagnosed with left ectopic tubal and received methotrexate 93.5 mg and was discharged home. Since then, she did well start but started having left sided discomfort that has increased few hours prior to presentation. HCG on 12/02 was 1263 went up to 2926 on 12/04 and repeat hCG on 12/06 was 11/30/1997.? The workup done emergency room today included the following H&H of 9.5/30.7 (compared to 10.4/35.2 days ago), blood type B positive, hCG 6833. Ultrasound showed no IUP with a left adnexal mass measuring 2.5 x 2.1 x 1.9 compared to 0.8 x 0.6 x 0.5 cm on ultrasound performed 2 days ago, with an internal structure appearing like a yolk sac and a gestational sac , no pole, suspicious for ectopic .? Trace pelvic fluid The patient pain is moderate to severe, the patient received fentanyl on arrival to the emergency room. Patient states that she is not interested in future fertility. 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 Systems Review of Systems ROS Unobtainable: All systems reviewed & are unremarkable except as noted in HPI and below Cardiovascular: Denies Palpatations, Loss of consciousness or Chest pain Respiratory: Denies Cough, Wheezing or Shortness of breath Musculoskeletal: Denies Low back pain Gastrointestinal: Denies Heartburn, Constipation, Diarrhea, Nausea or Vomiting Genitourinary: Denies Pain with urination, Burning with urination or Urinary frequency Neurological: Denies Migranes Psychological: Denies Depression OB [facility] Past Medical History Medical History Ectopic Ectopic Ruptured right tubal ectopic causing hemoperitoneum Family History Family History Father Colon cancer Maternal Grandmother Breast CA Daughter No problems noted. Surgical History Surgical History Bariatric surgery status Hx of laparoscopic partial gastrectomy Social History Social History Alcohol intake: never Patient Tobacco Use Status: Never used Tobacco Second Hand Smoke Exposure: No Use of substances other than those prescribed or required for medical reasons: No Are you DNR?: No Advance Directives: No Advance Directives Information Provided: Yes Advance Directives on File: No Sexual orientation: Straight/Heterosexual Gender identity: Female Meds Allergies Allergy/AdvReac Type Severity Reaction Status Date / Time No Known Allergies Allergy Verified 12/08/21 12:58 DISTRIBUTED GENERATION PROJECT MANAGER Physical Exam Vitals Vital signs: Temp Pulse BP 98.4 F 74 117/66 12/08/21 12:03 12/08/21 12:03 12/08/21 12:03 BMI result Body Mass Index 29.1 Constitutional General Appearance: Healthy appearing, Well-nourished and Well-developed Psychiatric Mood and Affect: active and alert, normal mood and normal affect Skin Appearance: No rashes and No lesions Lungs Respiratory Effort: No intercostal retractions Auscultation: Clear to auscultation Cardiovascular Auscultation: RRR Abdomen Auscultation/Inspection/Palpation: Normal bowel sounds, Non-distended and Tenderness (Left lower quadrant tenderness) Female Genitalia (Pelvic) Vagina: Nontender Cervix: Grossly normal and Cervical motion tenderness Adnexa/Parametria: Adnexal Tenderness: Left, Adnexal Mass: Left and Parametrial Tenderness: Left DISTRIBUTED GENERATION PROJECT MANAGER - Results Labs CBC & Chem 7: 12/08/21 12:04 12/08/21 12:07 Labs: Short CBC 12/08/21 Range/Units 12:04 WBC 8.4 (4.8-10.8) X10*3/uL Hgb 9.5 L (12.0-16.0) g/dl Hct 30.7 L (37.0-47.0) % Plt Count 282 (160-400) X10*3/uL BMP 12/08/21 12:07 Sodium 135 Potassium 4.1 Chloride 105 Carbon Dioxide 20 L BUN 8 L Creatinine 0.73 Calcium 8.9 Liver Function 12/08/21 Range/Units 12:07 Total Bilirubin 0.4 (0.0-1.0) mg/dL Direct Bilirubin 0.3 (0.0-0.5) mg/dL AST 25 (5-31) U/L ALT 17 (0-31) U/L Alkaline Phosphatase 52 (39-117) U/L Albumin 4.5 (3.5-5.0) g/dL Antibody Screen Antibody Screen NEGATIVE 12/08/21 12:08 Assessment and Plan (1) Ectopic : Status: Acute Discussed with the patient her clinical scenario, left tubal ectopic that has increased in size and worsening pain that is intolerable according to the patient, she is status post day 2 of methotrexate treatment. Options of treatment discussed with the patient included the following: Laparoscopic left salpingostomy possible salpingectomy versus expectant management. The benefits of expected management discussed with the patient include possibe salvage of her only remaining left fallopian tube for potential future fertility, the risks include but not limited to: Pelvic pain that can be managed with pain medications especially that expected management will be as an inpatient observation; in addition to an increase in the risk of possible ectopic tubal rupture. The other option discussed with the patient include surgical management, laparoscopic left salpingostomy versus salpingectomy, the benefit of which includes reducing the risk of ectopic tubal rupture and its potential consequences, risks include possible salpingectomy and causing permanent sterilization especially in her situation with a previous right salpingectomy; all questions answered, the patient verbalized understanding and stated that she has completed her family, is not interested in any future fertility and would like to have permanent sterilization, and therefore, she is not interested expectant management. Will proceed with laparoscopic salpingostomy possible partial salpingectomy, possible laparotomy. All the pros and cons were discussed with the patient including the risks including but not limited to: Risk of bleeding, infection, possible injury to bladder, bowel, ureter, bladder, possible injury to vessels and need for blood transfusion with all its risks including HIV, hepatitis-B and C and other blood borne pathogens, possible permanent sterilization in case of left salpingectomy. All questions answered, the patient verbalized understanding agreed with the plan and signed the consent. Type and screen sent.
--- NOTE | 2021-12-08 13:49 | P.CONAN_ITS ---
[facility] Active Problems Active Problems: All Active Problems (Updated 12/08/21 @ 12:58 by Jf Jimenez) Ectopic (Acute) Threatened in first trimester (Acute) Pelvic pain in female (Acute) Spontaneous (Acute) Hx of ectopic (Acute) Deep dyspareunia (Acute) Family planning advice (Acute) Ruptured right tubal ectopic causing hemoperitoneum (Acute) Past Medical History Medical History Ectopic Ectopic Ruptured right tubal ectopic causing hemoperitoneum Family History Family History Father Colon cancer Maternal Grandmother Breast CA Daughter No problems noted. Family history of problems with anesthesia: No Surgical History Surgical History Bariatric surgery status Hx of laparoscopic partial gastrectomy History of Problems with Anesthesia: No Social History Social History Alcohol intake: never Patient Tobacco Use Status: Never used Tobacco Second Hand Smoke Exposure: No Use of substances other than those prescribed or required for medical reasons: No Are you DNR?: No Advance Directives: No Advance Directives Information Provided: Yes Advance Directives on File: No Sexual orientation: Straight/Heterosexual Gender identity: Female Meds Allergies Allergy/AdvReac Type Severity Reaction Status Date / Time No Known Allergies Allergy Verified 12/08/21 12:58 Exam Exam Date and Time: December 08, 2021 1349 Height,Weight and Vital Signs: Height 4 ft 8 in Weight 58.967 kg Last Vital Signs Temp 98.2 F 12/08/21 13:43 Pulse 81 12/08/21 13:43 Resp 16 12/08/21 13:43 BP 120/66 12/08/21 13:43 Pulse Ox 96 12/08/21 13:43 O2 Del Method 12/08/21 13:43 Pertinent Lab Results Pertinent Lab Results: Laboratory Tests 12/08/21 12/08/21 12/08/21 12:04 12:05 12:07 WBC 8.4 RBC 4.31 Hgb 9.5 L Hct 30.7 L MCV 71.2 L MCH 22.0 L MCHC 30.9 L RDW 17.2 H Plt Count 282 MPV 10.3 Immature Gran % (Auto) 0.5 H Neut % (Auto) 73.6 H Lymph % (Auto) 19.3 L Charlton % (Auto) 5.7 Eos % (Auto) 0.4 Baso % (Auto) 0.5 Lymph # (Auto) 1.6 Charlton # (Auto) 0.5 Eos # (Auto) 0.0 Baso # (Auto) 0.0 Abs Immat Gran (auto) 0.04 H Absolute Neuts (auto) 6.2 Absolute Nucleated RBC 0.000 Nucleated RBC % (auto) 0.0 PT 11.5 INR 1.0 Sodium 135 Potassium 4.1 Chloride 105 Carbon Dioxide 20 L Anion Gap 14 BUN 8 L Creatinine 0.73 Estim Creat Clear Calc 79.2 Estimated GFR > 60 Random Glucose 90 Calcium 8.9 Total Bilirubin 0.4 Direct Bilirubin 0.3 AST 25 ALT 17 Alkaline Phosphatase 52 Total Protein 7.6 Albumin 4.5 Beta HCG, Quant 6833 Blood Type Antibody Screen 12/08/21 12:08 WBC RBC Hgb Hct MCV MCH MCHC RDW Plt Count MPV Immature Gran % (Auto) Neut % (Auto) Lymph % (Auto) Charlton % (Auto) Eos % (Auto) Baso % (Auto) Lymph # (Auto) Charlton # (Auto) Eos # (Auto) Baso # (Auto) Abs Immat Gran (auto) Absolute Neuts (auto) Absolute Nucleated RBC Nucleated RBC % (auto) PT INR Sodium Potassium Chloride Carbon Dioxide Anion Gap BUN Creatinine Estim Creat Clear Calc Estimated GFR Random Glucose Calcium Total Bilirubin Direct Bilirubin AST ALT Alkaline Phosphatase Total Protein Albumin Beta HCG, Quant Blood Type B Positive Antibody Screen NEGATIVE Airway Mallampati Class: I TM Dist: >3cm Assessment and Plan Assessment Anesthesia Assessment: Anesthesia Plan Discussed and Chart Reviewed Final Anesthetic Review Family History of Problems with Anesthesia: No History of Problems with Anesthesia: No NPO: Yes ASA Class: II and Emergency Final Preanesthetic Review: No Changes in Pt Med Stat, Meds/Allgs Chart Reviewed and Consent Obtained/Reviewed Patient Risk: Intermediate Procedure Risk: Intermediate Anesthetic Plan Anesthetic Plan: GA Disposition: Standard PACU and Inp. Admit - Standard Bed
[2021-12-08 15:21] LABS: CT PCR NOT DETECTED (Not Detect.); NG PCR NOT DETECTED (Not Detect.)
--- NOTE | 2021-12-08 15:23 | PM.OP ---
Brief Operative Note Date of Service: 12/08/21 Pre-op diagnosis: Left ectopic tubal Post-op diagnosis: same (Same plus 100 cc of hemoperitoneum) Procedure: Laparoscopic left partial salpingectomy and evacuation of hemoperitoneum Surgeon: Sinan Breen MD Anesthesia: GETA Was an Medical Artist used for this Procedure?: No Estimated blood loss (mL): 0 Pathology: other (Left partial fallopian tube with ectopic ) Condition: stable Disposition: PACU
--- NOTE | 2021-12-08 15:25 | P.OP_ITS ---
Operative Note Operative Note Date of Service: 12/08/21 Narrative: PREOPERATIVE DIAGNOSIS: Left tubal ectopic POSTOPERATIVE DIAGNOSIS:?3-4 cm right ecotpic filling up most of the tubal length with bluish discoloration, 100 cc of hemoperitoneum Procedure: Left partial salpingectomy QBL: Minimal Anesthesia: GETA SURGEON:? Sinan Breen MD?? Patient Registration Manager:None Complications: None Pathology: Left partial Fallopian tubes? DESCRIPTION OF PROCEDURE:?The patient was taken to the OR where general anesthesia was easily obtained. The patient was then prepped and draped in a sterile fashion and placed in dorsal lithotomy position. A speculum was introduced into the patient?s vagina for cervical visualization. a was introduced into the patient?s cervix. The single tooth tenaculum was then removed and hemostasis was assured?using pressure. a Frederick catheter?was inserted and clear urine started draining. Gloves were changed to clean ones. Attention was then drawn to the abdomen where a 10 mm longitudinal incision was done intra umbilical and carried down all the way to the fascia, which was tented?up using 2 Chelsea clamps and was nicked in the midline and then extended on both end of the incision?, them using 2 pick?ups the peritoneum?was entered with Metzenbaum scissors and a 10 mm Hernández trocar was introduced into the patient?s abdomen. Once intraperitoneal placement was confirmed with direct visualization, pneumoperitoneum was started & was easily obtained. Then, two fingerbreadths above the pubic symphysis and towards the?right lower quadrant, under direct visualization, a 5 mm trocar was then introduced into the patient?s abdomen. and a 3rd one on the left?lower quadrant was placed?in a similar manner. The patient was placed in Trendelenburg position, Inspection revealed left tubal filling up most of the right tube was bluish discoloration and 100 cc of hemoperitoneum, normal bilateral ovaries and surgically absent left fallopian tube. Attention was then drawn to the left fallopian tube. Since most of the left tube was filled up with the ectopic with bluish discoloration and the patient is not interested in future fertility and expressed interest in permanent sterilization decision was made to proceed with salpingectomy instead of salpingostomy The IP ligament was identified and fallopian tube was then grasped and incised from the mesosalpinx using ligasure device, using cautery for hemostasis and cutting afterwards a bite at a time all the way to the area medial to the edge of the ectopic of the left fallopian tube. Good hemostasis was noted from the right fallopian tube sites and the operative site. Specimen were then removed from the patient?s abdomen using endobag from the 10 mm trocar through the umbilicus. The hemoperitoneum was suctioned and this was followed by copious irrigation. Once good hemostasis was noted from the patient?s abdomen, pneumoperitoneum was deflated and all trocars were removed. Infraumbilical fascia was closed with 0 Vicryl and interrupted suture. The skin was closed with 4-0 Vicryl. The Right and left?lower quadrant ports were closed with 0 Vicryl. Bupivicaine 0.25 10 cc were injected subcuticularly in the 3 incisions. Then speculum was put back in the vagina inspection revealed?hemostasis at the site of the tenaculum, the?sponge stick was removed?from the patient's vagina and Frederick was draining clear urine was taken out too. Sponge, lap and needle counts were correct x2. The patient was taken to the recovery room in stable condition.
--- NOTE | 2021-12-08 18:41 | PHA.MEDREC ---
Pharmacy Consult ? Medication Reconciliation Pharmacy was an admitted patient. Patient went surgery then discharged after surgery therefore med rec was not completed
--- NOTE | 2021-12-09 07:54 | MHC.CM.PN ---
Patient was discharged home before being seen by case management.
== END 2021-12-08 17:47 | disposition home or self-care (01) ==
LOC: HO.ED 15:41 → HO.SSS 15:56
PROVIDERS: Emergency Provider Emergency Medicine; Visit Provider Obstetrics & Gynecology
PROC: 10T24ZZ Resection of Products of Conception, Ectopic, Percutaneous Endoscopic Approach (ICD-10-PCS; CPT 59150; principal; 2021-12-08 14:00)
DX: O00.102 Left tubal pregnancy without intrauterine pregnancy (principal); O08.89 Other complications following an ectopic and molar pregnancy; K66.1 Hemoperitoneum; Z3A.01 Less than 8 weeks gestation of pregnancy; R10.32 Left lower quadrant pain; Z98.84 Bariatric surgery status; Z20.822 Contact with and (suspected) exposure to COVID-19
CPT/HCPCS: 59151; 76801; 76817; 80048; 80076; 84702; 85025; 85610; 86850; 86900; 86901; 87491; 87591; 87635; 88305; 96361; 96374; 96375; 99285; J1100; J1170; J2250; J2405; J2795; J3010

== ENCOUNTER 2021-12-20 09:57 | Outpatient (REF) | payer OTHER, SELFPAY | END 2021-12-20 09:58 | disposition home or self-care (01) | LOC: CF 09:57 | PROVIDERS: PCP Internal Medicine; Visit Provider Obstetrics & Gynecology | DX: O00.90 Unspecified ectopic pregnancy without intrauterine pregnancy (principal) | CPT/HCPCS: 99212 ==

== ENCOUNTER → 2021-12-21 12:39 | Outpatient (BNVA) | payer OTHER, SELFPAY | PROVIDERS: Visit Provider Obstetrics & Gynecology | DX: O00.90 Unspecified ectopic pregnancy without intrauterine pregnancy (principal); Z98.890 Other specified postprocedural states | CPT/HCPCS: 99212 ==

== ENCOUNTER 2022-06-12 10:06 | Outpatient (REF) | payer OTHER, SELFPAY ==
--- NOTE | ~2022-06-12 | XR_ITS ---
EXAMINATION: XR LUMBAR SPINE XR SACROILIAC JOINTS CLINICAL INFORMATION: Lower back pain. Sacroiliitis. COMPARISON: CT abdomen/pelvis dated 08/11/2009. TECHNIQUE: PA, lateral, and coned-down views of the lumbar spine. AP and bilateral Judet views of the sacroiliac joints. FINDINGS: LUMBAR SPINE: There are 6 nonrib-bearing lumbar-type vertebral bodies. Normal vertebral body alignment. The lumbar lordosis is maintained. No acute fracture or subluxation. No loss of vertebral body height. Mild loss of intervertebral disc at L5-S1. Tiny multilevel anterior endplate osteophytes. No lytic or blastic osseous lesion. Left upper quadrant surgical clips. SACROILIAC JOINTS: No joint space narrowing or marginal osteophytes. No subchondral sclerosis or subchondral cystic change. No concerning lytic or blastic osseous lesion. No fracture or dislocation. No abnormal soft tissue calcification. XR/XR lumbar spine 2-3V IMPRESSION: LUMBAR SPINE: 6 nonrib-bearing lumbar-type vertebral bodies. Mild degenerative disc disease at L5-S1. SACROILIAC JOINTS: Unremarkable examination.
--- NOTE | ~2022-06-12 | XR_ITS ---
EXAMINATION: XR LUMBAR SPINE XR SACROILIAC JOINTS CLINICAL INFORMATION: Lower back pain. Sacroiliitis. COMPARISON: CT abdomen/pelvis dated 08/11/2009. TECHNIQUE: PA, lateral, and coned-down views of the lumbar spine. AP and bilateral Judet views of the sacroiliac joints. FINDINGS: LUMBAR SPINE: There are 6 nonrib-bearing lumbar-type vertebral bodies. Normal vertebral body alignment. The lumbar lordosis is maintained. No acute fracture or subluxation. No loss of vertebral body height. Mild loss of intervertebral disc at L5-S1. Tiny multilevel anterior endplate osteophytes. No lytic or blastic osseous lesion. Left upper quadrant surgical clips. SACROILIAC JOINTS: No joint space narrowing or marginal osteophytes. No subchondral sclerosis or subchondral cystic change. No concerning lytic or blastic osseous lesion. No fracture or dislocation. No abnormal soft tissue calcification. XR/XR sacroiliac joint 1-2V IMPRESSION: LUMBAR SPINE: 6 nonrib-bearing lumbar-type vertebral bodies. Mild degenerative disc disease at L5-S1. SACROILIAC JOINTS: Unremarkable examination.
== END 2022-06-12 10:07 | disposition home or self-care (01) ==
LOC: HO.HMGCX 10:06
PROVIDERS: Visit Provider Nurse Practitioner Family
DX: M54.50 Low back pain, unspecified (principal); M46.1 Sacroiliitis, not elsewhere classified
CPT/HCPCS: 72100; 72200

== ENCOUNTER → 2022-08-22 09:32 | Outpatient (BNVA) | payer OTHER, SELFPAY | PROVIDERS: Visit Provider Physician Assistant Surgical | DX: E66.3 Overweight (principal); L98.7 Excessive and redundant skin and subcutaneous tissue; Z90.3 Acquired absence of stomach [part of]; Z68.27 Body mass index [BMI] 27.0-27.9, adult | CPT/HCPCS: 99212 ==

== ENCOUNTER 2022-11-07 08:45 | Outpatient (REF) | payer OTHER, SELFPAY ==
[2022-11-07 13:26] LABS: CT PCR NOT DETECTED (Not Detect.); NG PCR NOT DETECTED (Not Detect.)
== END 2022-11-07 08:46 | disposition home or self-care (01) ==
LOC: HO.LNP 08:45
PROVIDERS: PCP Internal Medicine; Visit Provider Obstetrics & Gynecology
DX: Z01.419 Encounter for gynecological examination (general) (routine) without abnormal findings (principal); R10.2 Pelvic and perineal pain; R31.29 Other microscopic hematuria
CPT/HCPCS: 0353U; 81025

== ENCOUNTER 2022-11-08 09:31 | Outpatient (REF) | payer OTHER, SELFPAY | END 2022-11-08 09:32 | disposition home or self-care (01) | LOC: HO.LAB 09:31 | PROVIDERS: PCP Internal Medicine; Visit Provider Obstetrics & Gynecology | DX: R31.29 Other microscopic hematuria (principal) | CPT/HCPCS: 87086; 87088; 87186 ==

== ENCOUNTER 2022-11-28 10:59 | Outpatient (REF) | payer OTHER, SELFPAY ==
--- NOTE | ~2022-11-28 | US_ITS ---
EXAM: Pelvic Ultrasound CLINICAL INDICATION: Pelvic and perineal pain COMPARISON: Pelvic ultrasound 12/18/2021 TECHNIQUE: The pelvis was evaluated using transabdominal and transvaginal imaging. FINDINGS: The uterus measures 7.8 x 3.4 x 5 point cm in longitudinal by AP by transverse dimension. The endometrial stripe measures 1.4 cm. Uterus demonstrates an overall heterogeneous echotexture although no focal masses identified. Nabothian cyst noted within the cervix. The left ovary measures approximately 3.0 x 2.0 x 2.7 cm and is normal. The right ovary measures approximately 2.8 x 2.1 x 2.9 and contains a punctate calcification. There are no abnormal adnexal masses. There is no free fluid in the pelvis. US/US pelvic and transvaginal IMPRESSION: Endometrial stripe measures 1.4 cm in thickness. Correlation with menstrual cycle recommended.
== END 2022-11-28 11:00 | disposition home or self-care (01) ==
LOC: HO.US 10:59
PROVIDERS: PCP Internal Medicine; Visit Provider Obstetrics & Gynecology
DX: R10.2 Pelvic and perineal pain (principal)
CPT/HCPCS: 76830; 76856

== ENCOUNTER → 2022-11-29 08:51 | Outpatient (BNVA) | payer OTHER, SELFPAY | PROVIDERS: PCP Internal Medicine; Visit Provider Obstetrics & Gynecology ==

== ENCOUNTER 2022-12-12 09:32 | Outpatient (AMB) | payer OTHER, SELFPAY ==
--- NOTE | 2022-12-12 09:41 | MHC.OFFVIS ---
Intake Vital Signs 12/12/22 09:48 Height 5 ft 5 in Weight 169 lb 12.095 oz BMI 28.2 BP 110/70 Intake Visit Reasons: US Follow up/ urine dip Fur Sorter Required: No Information Interpreted: non-clinical & clinical Accompanied by: Self / Same As Patient Allergies No Known Allergies Allergy (Verified 12/12/22 09:49) Is last menstrual period known: Yes Last menstrual period: 11/20/22 HPI HPI Comments History of Present Illness Details Presenting for follow-up regarding pelvic pain. Urine test last visit was negative, urine dip showed microscopic hematuria. GC and chlamydia were negative. Pelvic ultrasound done on 11/28/2022 showed the following: The uterus measures 7.8 x 3.4 x 5 point cm in longitudinal by AP by transverse dimension. The endometrial stripe measures 1.4 cm. Uterus demonstrates an overall heterogeneous echotexture although no focal masses identified. Nabothian cyst noted within the cervix. The left ovary measures approximately 3.0 x 2.0 x 2.7 cm and is normal. The right ovary measures approximately 2.8 x 2.1 x 2.9 and contains a punctate calcification.? There are no abnormal adnexal masses. There is no free fluid in the pelvis. [facility] Medical History Ectopic Ectopic Ruptured right tubal ectopic causing hemoperitoneum Surgical History Bariatric surgery status Hx of laparoscopic partial gastrectomy Family History Father Colon cancer Maternal Grandmother Breast CA Daughter No problems noted. Social History Alcohol intake: never Patient Tobacco Use Status: Never used Tobacco Second Hand Smoke Exposure: No Sexual orientation: Straight/Heterosexual Gender identity: Female Female Reproductive History Menstrual Date of last menstrual period: 11/20/22 Review of Systems Const All systems reviewed & are unremarkable except as noted in HPI and below Reports as per HPI and Reports no additional complaints GI Reports no additional complaints Reports no additional complaints Assessment & Plan Assessment & Plan (1) Microscopic hematuria: Code(s): R31.29 - Other microscopic hematuria Plan: Repeat urine dip done today in the office was negative with no evidence of microscopic hematuria. The patient was reassured (2) Pelvic pain: Code(s): R10.2 - Pelvic and perineal pain Plan: Discussed with the patient the results the ultrasound, GC and chlamydia repeat urine dip all reassuring. Instructions given the patient to schedule an appointment with her PCP for further management and to call back in case the workup is negative and the pelvic pain is persistent we will investigate it further. All questions answered, the patient verbalized understanding Coding Level of Care Code Est Pt Level 3 (53899) Diagnoses Microscopic hematuria R31.29 Pelvic pain R10.2
[2022-12-12 09:48] VITALS: BP 110/70; BMI 28.2
== END 2022-12-12 09:55 | disposition home or self-care (01) ==
LOC: HO.HWS 09:32
PROVIDERS: PCP Internal Medicine; Visit Provider Obstetrics & Gynecology
DX: R31.29 Other microscopic hematuria (principal); R10.2 Pelvic and perineal pain
CPT/HCPCS: 99213

== ENCOUNTER → 2022-12-12 09:32 | Outpatient (BNVA) | payer OTHER, SELFPAY | PROVIDERS: PCP Internal Medicine; Visit Provider Obstetrics & Gynecology | DX: R31.29 Other microscopic hematuria (principal); R10.2 Pelvic and perineal pain | CPT/HCPCS: 99212 ==

== ENCOUNTER 2023-05-13 09:30 | Outpatient (AMB) | payer OTHER, SELFPAY ==
--- NOTE | 2023-05-13 09:39 | A.OFFVIS_ITS ---
Intake VS Expanded 05/13/23 09:47 Height 5 ft 5 in Weight 174 lb 8 oz BMI 29.0 Intake Visit Reasons: VIDEO PO LSG 08/28/18 Allergies No Known Allergies Allergy (Verified 12/12/22 09:49) HPI HPI Comments History of Present Illness Details This?is a 32?yo female who is s/p LSG 08/28/2018. Presents for 4.5 year post op visit. Weight at last visit on 08/22/2022 was 167.6 pounds with a BMI of 27.8, weight today is 174 pounds, representing a 6.4 pound weight loss with a BMI today of 29.? Pt reports she thought she had blood in stool so she went to another ER; was found to be anemic. Reports had increased red wine drinking, as well as ibuprofen use due to a toothache; resulted in some abdominal pain but this has improved since she stopped doing those things. Followed up with PCP, was also found to be low on vit D and iron. Was prescribed vit D and PO iron. Just bought Ensure Max [place]dom. Knows fluid intake is low. Present meal plan includes: Breakfast- protein bar or Frisian yogurt with fruit or 2 eggs Lunch- Premier 30g shake Dinner- 2-3oz protein plus veg/salad Exercise- on her 2 days off and on day that she starts work at 11am, try to get 20-30min exercise on stationary bike or doing an exercise she enjoys. Pt reports problems of excess skin of abdomen. It is difficult to clean in skin fold. Moisture collects in skin fold and has an unpleasant odor. Reports chafing/rashes from skin folds running together. Has to wear special clothing (compressive waistband) to hold skin in place and prevent discomfort. Skin feels heavy and it is uncomfortable to get up/out of bed due to skin in the way. [facility] Medical History Ectopic Ectopic Ruptured right tubal ectopic causing hemoperitoneum Surgical History Bariatric surgery status Hx of laparoscopic partial gastrectomy Family History Father Colon cancer Maternal Grandmother Breast CA Daughter No problems noted. Social History Alcohol intake: never Patient Tobacco Use Status: Never used Tobacco Second Hand Smoke Exposure: No Sexual orientation: Straight/Heterosexual Gender identity: Female Assessment & Plan Assessment & Plan (1) Excess skin: Code(s): L98.7 - Excessive and redundant skin and subcutaneous tissue (2) Status post sleeve gastrectomy: Code(s): Z90.3 - Acquired absence of stomach [part of] (3) Overweight: Code(s): E66.3 - Overweight Plan Pt is motivated to restart high protein meal plan, would like skin removal surgery sometime in the spring after she returns from a vacation in August. Goal weight ~160lbs to qualify. Will restart previous plan of bar for breakfast, shake for lunch, and protein/veg for dinner. If she is very busy at work and does not have time to eat may substitute bar for another shake as she is allowed to keep beverages with her while working. Will plan to restart exercise on days off. We discussed restarting [place] [facility], pt plans to come to [employer] shop this week to [facility]. Pt continues to have issues of excess skin of abdomen resulting in painful rashes, refractory to topical Rx treatment. Also experiencing limitations in activities of daily living due to discomfort from weight/heaviness of excess skin. She would benefit from definitive treatment of panniculectomy once able to reach goal weight. RTC 6-8 weeks for accountability. Can repeat labs at that time. Patient is overweight and with ongoing issues of excess skin, and is not considered stable at this time. I spent a total of 30 minutes reviewing/updating records, examining the patient and counseling the patient on weight management as detailed above. Medications: New inulin 2 grams PO DAILY 90 tabs 3RF Telehealth Telehealth Location of provider rendering services: practice address Location of patient: other Patient Identification confirmed using: Name, : Yes Telehealth method: video Patient verbally consented to treatment: Yes Patient verbally consented to billing insurance company: Yes Patient informed of any privacy concerns related to visit: Yes Coding Level of Care Code Est Pt Level 4 (26242) Diagnoses Excess skin L98.7 Status post sleeve gastrectomy Z90.3 Overweight E66.3
[2023-05-13 09:47] VITALS: BMI 29.0
== END 2023-05-13 10:16 | disposition home or self-care (01) ==
LOC: HO.HBS 10:09
PROVIDERS: PCP Internal Medicine; Visit Provider Physician Assistant Surgical
DX: E66.3 Overweight (principal); Z68.29 Body mass index [BMI] 29.0-29.9, adult; Z90.3 Acquired absence of stomach [part of]; L98.7 Excessive and redundant skin and subcutaneous tissue
CPT/HCPCS: 99214

== ENCOUNTER → 2023-05-13 09:30 | Outpatient (BNVA) | payer OTHER, SELFPAY | PROVIDERS: PCP Internal Medicine; Visit Provider Physician Assistant Surgical ==

== ENCOUNTER 2023-06-19 10:10 | Outpatient (REF) | payer OTHER, SELFPAY ==
[2023-06-19 10:33] LABS: MANUAL DIFF FLAG NO
[2023-06-19 10:52] LABS: Basophils Absolute Auto 0.1 X10*3/uL (0.0-0.2); Basophils Percent Auto 0.9 % (0-2); Eosinophils Absolute Auto 0.1 X10*3/uL (0.0-0.4); Eosinophils Percent Auto 0.7 % (0-4); Hematocrit 33.2 % (37.0-47.0); Hemoglobin 9.9 g/dl (12.0-16.0); Imm Gran Abs Auto 0.02 X10*3/uL (0.00-0.03); Imm Gran Pct Auto 0.3 % (0.0-0.4); Lymphocytes Absolute Auto 1.7 X10*3/uL (1.2-4.9); Lymphocytes Percent Auto 24.7 % (20-40); Mean Corpuscular HGB Conc 29.8 g/dl (31.0-35.0); Mean Corpuscular Hemoglobin 21.6 pg (27.0-33.0); Mean Corpuscular Volume 72.5 fL (80.0-98.0); Mean Platelet Volume 10.1 fL (9.4-12.3); Monocytes Absolute Auto 0.4 X10*3/uL (0.1-1.2); Monocytes Percent Auto 6.4 % (2-11); Neutrophils Absolute Auto 4.5 x10*3/uL (2.0-8.3); Platelet Count 285 X10*3/uL (160-400); Red Blood Count 4.58 X10*6/uL (4.20-5.50); Red Cell Distribution Width 24.1 % (11.0-16.0); White Blood Count 6.8 X10*3/uL (4.8-10.8)
[2023-06-19 11:01] LABS: Estimated Average Glucose 91 mg/dL; Hemoglobin A1c % 4.8 % (<6.0)
[2023-06-19 11:27] LABS: Alanine Aminotransferase 30 U/L (0-31); Albumin Level 4.2 g/dL (3.5-5.0); Alkaline Phosphatase 44 U/L (39-117); Anion Gap 11 (12-20); Aspartate Amino Transferase 29 U/L (5-31); Bilirubin Total 0.3 mg/dL (0.0-1.0); Blood Urea Nitrogen 11 mg/dL (9-16); C Reactive Protein < 0.10 mg/dL (< or = 0.50); Calcium 9.3 mg/dL (8.4-10.2); Carbon Dioxide 28 mmol/L (22-29); Chloride 107 mmol/L (96-108); Cholesterol 167 mg/dL (<200); Estimated Glomerular Filt Rate > 60; Glucose Random 92 mg/dL (60-115); HDL Cholesterol 84 mg/dL (>40); Iron 18 mcg/dL (30-160); LDL Cholesterol Calculated 72 mg/dL (<100); Percent Iron Saturation 4 % (15-50); Potassium 4.1 mmol/L (3.3-5.1); Sodium 142 mmol/L (135-145); Total Iron Binding Capacity 429 mcg/dL (228-428); Total Protein 7.1 g/dL (6.5-8.0); Triglycerides 56 mg/dL (<150); Unsaturated Iron Binding 411 ug/dL
[2023-06-19 11:51] LABS: Ferritin 9 ng/mL (10-122); Insulin 7 uU/mL (2-29); TSH reflex Free T4 1.32 uIU/mL (0.32-4.0)
[2023-06-19 12:01] LABS: Folate 9.5 ng/mL (> or = 4.0)
[2023-06-19 12:11] LABS: Vitamin B12 401 pg/mL (200-900)
[2023-06-21 14:43] LABS: Zinc 61 mcg/dL (60-130)
[2023-06-23 17:09] LABS: Vitamin A 51 mcg/dL (38-98)
[2023-06-24 12:23] LABS: Vitamin B1 9 nmol/L (8-30)
== END 2023-06-19 10:11 | disposition home or self-care (01) ==
LOC: HO.LAB 10:10
PROVIDERS: PCP Internal Medicine; Visit Provider Physician Assistant Surgical
DX: Z90.3 Acquired absence of stomach [part of] (principal)
CPT/HCPCS: 36415; 80053; 80061; 82306; 82607; 82728; 82746; 83036; 83525; 83540; 84425; 84443; 84590; 84630; 85025; 86140

== ENCOUNTER 2023-07-18 09:46 | Outpatient (AMB) | payer OTHER, SELFPAY ==
--- NOTE | 2023-07-18 09:38 | MHC.OFFVISWM ---
Intake VS Expanded 07/18/23 09:42 Height 5 ft 5 in Weight 179 lb BMI 29.8 Intake Visit Reasons: (TV) PO LSG 08/28/18 Allergies No Known Allergies Allergy (Verified 12/12/22 09:49) Medication List - Last Reconciled 07/18/23 by ANGY Wyatt cholecalciferol (vitamin D3) 50 mcg PO DAILY clotrimazole 1% 1 appl topical BID cyclobenzaprine 10 mg PO BID PRN 7 days ferrous sulfate 325 mg PO DAILY inulin 2 grams PO DAILY HPI HPI Comments History of Present Illness Details This?is a?32?yo female who is s/p LSG 08/28/2018. Weight at last visit on 05/13/2023 was 174.5 pounds with a BMI of 29, weight today is 179 pounds, representing a 4.5 pound weight gain with a BMI today of 29.8.? No complaints of nausea, emesis, abdominal pain or reflux, or constipation. Work has been busy, pt feels anxious due to her job. Did well for 2 weeks after last appointment but then got off track. Present meal plan includes: bar for breakfast, 30g shake for lunch, and protein/veg for dinner If she is very busy at work and does not have time to eat may substitute bar for another shake as she is allowed to keep beverages with her while working Exercise routine includes: on her 2 days off and on day that she starts work at 11am, try to get 20-30min exercise on stationary bike or doing an exercise she enjoys. Pt reports problems of excess skin of abdomen. It is difficult to clean in skin fold. Moisture collects in skin fold and has an unpleasant odor. Reports chafing/rashes from skin folds running together. Has to wear special clothing (compressive waistband) to hold skin in place and prevent discomfort. Skin feels heavy and it is uncomfortable to get up/out of bed due to skin in the way. Clotrimazole ointment has not helped. [facility] Medical History Ectopic Ectopic Ruptured right tubal ectopic causing hemoperitoneum Surgical History Bariatric surgery status Hx of laparoscopic partial gastrectomy Family History Father Colon cancer Maternal Grandmother Breast CA Daughter No problems noted. Social History Alcohol intake: never Patient Tobacco Use Status: Never used Tobacco Second Hand Smoke Exposure: No Sexual orientation: Straight/Heterosexual Gender identity: Female Assessment & Plan Assessment & Plan (1) Status post sleeve gastrectomy: Code(s): Z90.3 - Acquired absence of stomach [part of] (2) Overweight: Code(s): E66.3 - Overweight Plan Pt reports she has been having coffee, then not really eating all day until dinner due to her work schedule. Encouraged restarting bar for breakfast and shake around lunchtime to help her increase her protein intake. Labs reviewed, pt is taking PO iron and was started on vit D supplement. Continue clotrimazole for rashes of excess skin of abdomen. Pt continues to have issues of excess skin of abdomen resulting in painful rashes, refractory to topical Rx treatment. Also experiencing limitations in activities of daily living due to discomfort from weight/heaviness of excess skin. She would benefit from definitive treatment of panniculectomy once able to reach goal weight. RTC 6 weeks after return from traveling. Patient is overweight and with ongoing issues of excess skin, and is not considered stable at this time. I spent a total of 30 minutes reviewing/updating records, examining the patient and counseling the patient on weight management as detailed above. Telehealth Telehealth Location of provider rendering services: other Location of patient: address on file Patient Identification confirmed using: Name, : Yes Telehealth method: voice only Patient verbally consented to treatment: Yes Patient verbally consented to billing insurance company: Yes Patient informed of any privacy concerns related to visit: Yes Minutes spent on Phone/Video with Pt.: 15 Coding Level of Care Code Tele Est Pt Level 4 (72198) Diagnoses Status post sleeve gastrectomy Z90.3 Overweight E66.3
[2023-07-18 09:42] VITALS: BMI 29.8
== END 2023-07-18 09:54 | disposition home or self-care (01) ==
LOC: HO.HBS 09:46
PROVIDERS: PCP Internal Medicine; Visit Provider Physician Assistant Surgical
DX: E66.3 Overweight (principal); Z68.29 Body mass index [BMI] 29.0-29.9, adult; Z90.3 Acquired absence of stomach [part of]; Z98.84 Bariatric surgery status
CPT/HCPCS: 99214

== ENCOUNTER → 2023-07-18 09:46 | Outpatient (BNVA) | payer OTHER, SELFPAY | PROVIDERS: PCP Internal Medicine; Visit Provider Physician Assistant Surgical ==

== ENCOUNTER 2024-02-12 09:22 | Outpatient (AMB) | payer OTHER, SELFPAY ==
[2024-02-12 09:26] VITALS: BP 118/66; BMI 29.5
--- NOTE | 2024-02-12 09:26 | A.OFFVIS_ITS ---
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 No complaints. Last Pap/HPV was negative in 03/23 [facility] Medical History Ectopic Ectopic Ruptured right tubal ectopic causing hemoperitoneum Surgical History Bariatric surgery status Hx of laparoscopic partial gastrectomy Family History Father Colon cancer Maternal Grandmother Breast CA Daughter No problems noted. Social History Alcohol intake: never Patient Tobacco Use Status: Never used Tobacco Second Hand Smoke Exposure: No Sexual orientation: Straight/Heterosexual Gender identity: Female Review of Systems Const All systems reviewed & are unremarkable except as noted in HPI and below Card Reports as per HPI Resp Reports as per HPI GI Reports as per HPI and Reports no additional complaints Reports as per HPI Physical Exam Vital Signs: Last Vital Signs BP 118/66 02/12/24 09:26 BMI result Body Mass Index 29.5 Const General: cooperative, healthy appearing and comfortable Chest Chest palpation & inspection: normal inspection of the chest and normal palpation of entire chest wall Breast/axilla inspection: normal inspection of the breasts and normal inspection of the axillae Breast/axilla palpation: normal palpation of the breasts, normal palpation of the axillae and no axillary lymphadenopathy Resp Effort & Inspection: normal respiratory effort Auscultation: clear to auscultation bilaterally Percussion: percussion normal Cardio Palpation: normal PMI Rate: regular rate Rhythm: regular rhythm Heart sounds: no murmurs and no rubs Peripheral pulses: Peripheral pulses 2+ throughout GI Inspection: Yes normal to inspection Palpation (GI): Soft to palpation, nontender, no guarding, not rigid and No hepatosplenomegaly present Percussion: Yes normal to percussion Auscultation: normal bowel sounds Rectal Exam - Female: deferred General: Yes bladder normal to palpation External Female Exam: No lesion Speculum Exam - Vagina: normal appearance of the vagina, normal palpation, normal vaginal discharge and not erythematous Speculum Exam - Cervix: normal appearance of the cervix and normal palpation Bimanual exam- vagina & uterus: normal bimanual exam, normal palpation, uterine size normal, bladder normal to palpation, consistency normal and normal palpation Bimanual Exam- Adnexa, other: normal adnexae, no masses and no tenderness Assessment & Plan Assessment & Plan (1) Well woman exam: Code(s): Z01.419 - Encounter for gynecological examination (general) (routine) without abnormal findings Category: Medical Plan: Cotesting not indicated this year. Counseled the patient about the recommended dietary allowance of 1000 mg of Calcium & 600 IU of vitamin D. The patient was instructed to perform monthly self-breast exams and to schedule an annual exam in a year; All questions answered and the patient verbalized understanding. Instructed the patient to schedule annual exam in a year Coding Level of Care Code Est Pt Level 3 (82605) Est Pt Prev Care 18-39y(92138) Diagnoses Well woman exam Z01.419
== END 2024-02-12 10:19 | disposition home or self-care (01) ==
PROVIDERS: PCP Internal Medicine; Visit Provider Obstetrics & Gynecology
DX: Z01.419 Encounter for gynecological examination (general) (routine) without abnormal findings (principal)
CPT/HCPCS: 99395

== ENCOUNTER → 2024-02-12 09:22 | Outpatient (BNVA) | payer OTHER, SELFPAY | PROVIDERS: PCP Internal Medicine; Visit Provider Obstetrics & Gynecology | DX: Z01.419 Encounter for gynecological examination (general) (routine) without abnormal findings (principal) | CPT/HCPCS: 99395 ==

== ENCOUNTER 2024-03-18 11:37 | Emergency (ER) | payer OTHER, SELFPAY ==
[2024-03-18 11:57] VITALS: BP 136/54; PULSE 84; RESP 19; TEMP 36.6; O2SAT 98
--- NOTE | 2024-03-18 11:59 | ED_ITS ---
HPI - Skin/Abscess/Foreign Bdy General Chief complaint: Wound/Laceration Stated complaint: pilonidal cyst Time Seen by Provider: 03/18/24 14:11 Source: patient Mode of arrival: ambulatory Limitations: no limitations History of Present Illness ED Provider: Ani Beaulieu PA-C HPI narrative: Patient is a 33 year old assigned female at with a history of a gastric sleeve presenting to the emergency department today with left buttock pain. Patient states that 2 days ago she noticed a pimple to her left buttock and attempted to squeeze it but it is just getting more painful. Patient denies any dizziness, lightheadedness, abdominal pain, nausea, vomiting, fever, chills, blurry vision, double vision, loss of vision, chest pain, difficulty breathing, shortness of breath, back pain, night sweats, pain with urination, increased urinary frequency, increased urinary urgency, blood in her urine or stool, syncope or a near syncopal episode, recent trauma or falls, bowel incontinence, bladder incontinence, or any other complaints at this time. Relieving factors: none Exacerbating factors: none Context: none Associated symptoms: denies other symptoms Treatments prior to arrival: attempted to drain pus at home Related Data Home Medications ?Medication ?Instructions ?Recorded ?Confirmed cholecalciferol (vitamin D3) 50 50 mcg PO DAILY 07/18/23 07/18/23 mcg (2,000 unit) capsule ferrous sulfate 325 mg (65 mg 325 mg PO DAILY 07/18/23 07/18/23 iron) tablet Previous Rx's ?Medication ?Instructions ?Recorded cyclobenzaprine 10 mg tablet 10 mg PO BID PRN muscle spasm 7 06/12/22 days #14 tabs clotrimazole 1 % topical cream 1 appl topical BID #45 grams 08/22/22 inulin 2 gram chewable tablet 2 g PO DAILY #90 tabs 05/13/23 cephalexin 500 mg capsule 500 mg PO Q6H 7 days #28 caps 03/18/24 Allergies Allergy/AdvReac Type Severity Reaction Status Date / Time No Known Allergies Allergy Verified 03/18/24 11:59 Review of Systems 2 Constitutional: Constitutional: Reports no additional constitutional complaints, Denies chills, Denies fever(s) and Denies night sweats Eyes: Eyes: Reports no additional eye complaints, Denies blurry vision, Denies change in vision, Denies diplopia, Denies eye discharge, Denies loss of vision and Denies eye pain ENT: Denies dizziness Cardiovascular: Cardiovascular: Reports no additional cardiovascular complaints, Denies chest pain, Denies lightheadedness, Denies Loss of Consciousness and Denies dyspnea Respiratory: Respiratory: Reports no additional respiratory complaints and Denies dyspnea Gastrointestinal: Gastrointestinal: Reports no additional gastrointestinal complaints, Denies abdominal pain, Denies melena, Denies hematochezia, Denies change in bowel habits and Denies change in stool character Genitourinary: Genitourinary: Denies hematuria, Denies urinary frequency, Denies dysuria, Denies urinary incontinence, Denies urinary hesitancy and Denies urinary urgency Musculoskeletal: Musculoskeletal: Reports no additional musculoskeletal complaints, Denies numbness and Denies tingling Integumentary/Breasts: Comments: left buttock abscess Neurologic: Denies dizziness, Denies loss of vision, Denies numbness and Denies tingling Psychiatric: Psychiatric: Reports no additional psychiatric complaints Endocrine: Endocrine: Reports no additional endocrine complaints Hematologic/Lymphatic: Hematologic/Lymphatic: Reports no additional hematologic/lymphatic complaints Allergic/Immunologic: Allergic/Immunologic: Reports no additional allergic/immunologic complaints [facility] Past Medical History Attestation statement: The following information was validated with the patient. Source: old records reviewed and nursing notes reviewed Medical History Ectopic Ectopic Ruptured right tubal ectopic causing hemoperitoneum Surgical History Bariatric surgery status Hx of laparoscopic partial gastrectomy Family History Family History Father Colon cancer Maternal Grandmother Breast CA Daughter No problems noted. Social History Social History Alcohol intake: never Patient Tobacco Use Status: Never used Tobacco Second Hand Smoke Exposure: No Advance Directives: No Advance Directives Information Provided: No Do you have a plan to hurt others: No Plan Sexual orientation: Straight/Heterosexual Gender identity: Female Physical Exam 2 Vital Signs: Vital Signs: Last Vital Signs Temp 98 F 03/18/24 14:39 Pulse 84 03/18/24 14:39 Resp 19 03/18/24 14:39 BP 136/54 L 03/18/24 14:39 Pulse Ox 98 03/18/24 14:39 O2 Del Method Room Air 03/18/24 14:39 BMI result Body Mass Index 30.0 Const: General: cooperative, no acute distress, alert and awake Nutritional Appearance: well nourished Orientation/consciousness: patient oriented x3 Limitations: no limitations HEENT: Head: Yes normal to inspection and Yes atraumatic Ears: hearing grossly normal bilaterally and external ears normal General nose exam: Normal external nose present, no nasal discharge noted and no epistaxis Face and sinus: Yes normal facial exam, No abrasion and No laceration Mouth: Normal oral and palatal mucosa present, no drooling and no muffled voice Eyes: General: appearance normal, both eyes and all related structures P eriorbital: periorbital findings normal Eyelids: Yes eyelids normal C onjunctivae: conjunctivae normal Pupils: Equal, round and reactive pupils present EOM: EOMs intact bilaterally Neck: Neck: Yes normal visual inspection, Yes full ROM and Yes no lymphadenopathy Chest: Chest palpation & inspection: normal inspection of the chest Resp: Effort & Inspection: normal respiratory effort and able to speak in complete sentences GI: Inspection: Yes normal to inspection Back/Spine/Pelvis: Back/spine/pelvis image: 1. small area of erythema with induration but no fluctuance and surrounding bruising Neuro: General: patient oriented x3 and moves all extremities Cranial nerves: Yes Equal, round and reactive pupils present Cognition (Neuro): n ormal cognition Extrem: General: Yes normal to inspection, Yes full ROM and Yes capillary refill normal Psych: Appearance: grossly normal Mental Status: mental status grossly normal Affect: normal affect Attitude: cooperative Thought process: N ormal thought process present Thought content: Normal thought content present Insight: Good insight present (Psych) Course Course Course Narrative: This is a Rapid Medical Examination (RME) performed by Jose Antonio Pino PA-C in triage. Full HPI, ROS, assessment and treatment plan per primary provider in the Main ED. 33 here for eval of pilonidal cyst to lower back x2 days. increasing pain/ discomfort w/ sitting. when asked if she's had similar in the past, she states i think so . no fever/ chills. no discharge. + area not examined in triage d/t privacy Plan: further eval in back Medical Decision Making Medical Decision Making MDM Narrative: Patient is a 33 year old assigned female at with a history of a gastric sleeve presenting to the emergency department today with a left buttock abscess. Patient's physical exam was as noted in the physical exam portion of this note. Patient's area of concern had no flutuance or appropriate area to attempt to drain. I explained my physical exam findings to the patient. I answered all questions asked by the patient. I stressed the importance of the patient taking her medication as directed (either prescribed or as the over the counter packaging recommends). I stressed the importance of the patient following up with her primary care provider. I stressed the importance of the patient returning to the emergency department immediately if her symptoms were to worsen or if she were to develop any dizziness, shortness of breath, difficulty breathing, chest pain, blurry vision, loss of vision, nausea, vomiting, abdominal pain, fever, chills, back pain, or any other complaints. Patient verbalized agreement and understanding with this treatment plan and discharge. Differential Diagnosis Differential Diagnoses: The differential diagnosis associated with the presentation includes Buttock abscess Buttock cellulitis Admission/Observation Consideration of admission/observation: Escalation of care including admission/observation considered Patient would have been admitted to the hospital had her clinical presentation warranted hospital admission. Prescription Management I considered prescription management with: Antibiotic (patient prescribed an antibiotic for left buttock abscess) Discharge Plan Discharge Clinical Impression: Abscess of buttock Patient Disposition: Home, Self-Care Instructions: Abscess (ED) Additional Instructions: The area in question is swollen but does not contain fluid to be drained at this time. Take your antibiotic as prescribed. Apply warm compresses to the area. If the area opens, allow it to drain on it's own. Follow up with your primary care provider. Return to the emergency department immediately if your symptoms worsen or if you develop any dizziness, shortness of breath, difficulty breathing, chest pain, blurry vision, loss of vision, nausea, vomiting, abdominal pain, fever, chills, back pain, or any other complaints. Prescriptions: New cephalexin 500 mg capsule 500 mg PO Q6H 7 Days Qty: 28 0RF No Action cyclobenzaprine 10 mg tablet 10 mg PO BID PRN (Reason: muscle spasm) 7 Days Qty: 14 0RF clotrimazole 1 % cream 1 appl topical BID Qty: 45 3RF inulin 2 gram tablet,chewable 2 g PO DAILY Qty: 90 3RF ferrous sulfate 325 mg (65 mg iron) tablet 325 mg PO DAILY cholecalciferol (vitamin D3) 50 mcg (2,000 unit) capsule 50 mcg PO DAILY Referrals: Rox Rico MD [Primary Care Provider] - Stand Alone Forms: Work/School Release Interventions: ED Discharge Assessment Last Done: 03/18/24 14:39 Discharge Date/Time: 03/18/24 14:43 Print Language: Citizen Of [place]
[2024-03-18 14:39] VITALS: BP 136/54; PULSE 84; RESP 19; TEMP 36.6; O2SAT 98
== END 2024-03-18 14:43 | disposition home or self-care (01) ==
PROVIDERS: Emergency Provider Emergency Medicine; PCP Internal Medicine
DX: L05.01 Pilonidal cyst with abscess (principal)
CPT/HCPCS: 99282; 99283

== ENCOUNTER 2025-02-17 09:54 | Outpatient (AMB) | payer OTHER, SELFPAY ==
[2025-02-17 10:08] VITALS: BP 120/72; BMI 29.0
--- NOTE | 2025-02-17 10:08 | MHC.OFFVIS ---
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 No complaints. Complaining of vaginal discharge on and off but not currently, requesting STD screen Last Pap/HPV was negative in 03/23 [facility] Medical History Ectopic Ectopic Ruptured right tubal ectopic causing hemoperitoneum Surgical History Bariatric surgery status Hx of laparoscopic partial gastrectomy Family History Father Colon cancer Maternal Grandmother Breast CA Daughter No problems noted. 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 Sexual orientation: Straight/Heterosexual Gender identity: Female Female Reproductive History Menstrual Age of Menarche: 11 Duration of menses: 6-7 days Date of last menstrual period: 02/11/25 Total pregnancies: 4 Full term: 1 Number of Living Children: 1 Ab spontaneous: 1 Ectopics: 2 Date of last pap smear: 03/15/21 Review of Systems Const All systems reviewed & are unremarkable except as noted in HPI and below Card Reports as per HPI Resp Reports as per HPI GI Reports as per HPI and Reports no additional complaints Reports as per HPI Physical Exam Vital Signs: Last Vital Signs BP 120/72 02/17/25 10:08 BMI result Body Mass Index 29.0 Const General: cooperative, healthy appearing and comfortable Chest Chest palpation & inspection: normal inspection of the chest and normal palpation of entire chest wall Breast/axilla inspection: normal inspection of the breasts and normal inspection of the axillae Breast/axilla palpation: normal palpation of the breasts, normal palpation of the axillae and no axillary lymphadenopathy Resp Effort & Inspection: normal respiratory effort Auscultation: clear to auscultation bilaterally Percussion: percussion normal Cardio Palpation: normal PMI Rate: regular rate Rhythm: regular rhythm Heart sounds: no murmurs and no rubs Peripheral pulses: Peripheral pulses 2+ throughout GI Inspection: Yes normal to inspection Palpation (GI): Soft to palpation, nontender, no guarding, not rigid and No hepatosplenomegaly present Percussion: Yes normal to percussion Auscultation: normal bowel sounds Rectal Exam - Female: deferred General: Yes bladder normal to palpation External Female Exam: No lesion Speculum Exam - Vagina: normal appearance of the vagina, normal palpation, normal vaginal discharge and not erythematous Speculum Exam - Cervix: normal appearance of the cervix and normal palpation Bimanual exam- vagina & uterus: normal bimanual exam, normal palpation, uterine size normal, bladder normal to palpation, consistency normal and normal palpation Bimanual Exam- Adnexa, other: normal adnexae, no masses and no tenderness Assessment & Plan Assessment & Plan (1) Well woman exam: Code(s): Z01.419 - Encounter for gynecological examination (general) (routine) without abnormal findings Category: Medical Plan: Cotesting not indicated this year. Counseled the patient about the recommended dietary allowance of 1000 mg of Calcium & 600 IU of vitamin D. The patient was instructed to perform monthly self-breast exams and to schedule an annual exam in a year; All questions answered and the patient verbalized understanding. Instructed the patient to schedule annual exam in a year (2) Vaginal discharge: Code(s): N89.8 - Other specified noninflammatory disorders of vagina Category: Medical Plan: BV panel for trichomonas, GC/CT will send orders for serology for HIV, RPR, Hep b s Ag, HepC Ab. Instructions given the patient to schedule a follow-up appointment for repeat serology screen in 6 months for possible false negatives. Orders: Orders Hepatitis B Surface Antigen Today Z20.2 - Contact with and (suspected) exposure to infections with a predominantly sexual mode of transmission Hepatitis C Antibody Today Z20.2 - Contact with and (suspected) exposure to infections with a predominantly sexual mode of transmission Syphilis Screen Today Z20.2 - Contact with and (suspected) exposure to infections with a predominantly sexual mode of transmission HIV Ab/Ag Today Z20.2 - Contact with and (suspected) exposure to infections with a predominantly sexual mode of transmission Coding Level of Care Code Est Pt Prev Care 18-39y(99474) Diagnoses Well woman exam Z01.419 Vaginal discharge N89.8
--- OUTSIDE RECORDS SUMMARY | 2025-02-17 11:47 | XMS_ITS | Clinical Summary ---
Author Organization [facility] it Address [address] [place] [address] Care Team Providers Care Sharepoint Solutions Architect Name Role Phone Rox Rico MD Primary Care Provider [phone] Allergies No known active allergies Medications cholecalciferol (VITAMIN D-3) 50 mcg (2,000 unit) capsule Take 1 capsule (2,000 Units total) by mouth 1 (one) time each day. 05/08/2023 Active ferrous sulfate 325 mg (65 mg elemental iron) tablet Take 1 tablet (325 mg total) by mouth 1 (one) time each day. 05/08/2023 Active multivitamin,th er and minerals (VITAMINS AND MINERALS ORAL) Take by mouth daily. Active Active Problems Problem Noted Date Diagnosed Date Vitamin D deficiency 04/06/2021 Iron deficiency anemia 04/06/2021 Pes planus 04/25/2020 Hematuria, microscopic 06/19/2016 Abnormal Pap smear of cervix 01/31/2015 Overview (06/01/2024): Colpo showed AVE 3 and LEEP done 05/2015. ? Positive external margin, but repeat Pap and colposcopy normal. Repeat Pap and HPV 01/2016 with Annual exam Obesity (BMI 35.0-39.9 without comorbidity) 07/05 Immunizations Name Administration Dates Next Due DTP 10/20/1993, 1,03/18/1990,01/16,1989 [id number] (Pentacel) 2mo to less than 5yo 11/04/1990 HPV, Quadrivalent 11/13/2007,06/24/2007,04/10/20 07 Hepatitis B Pediatric (Enger ix B; Recombivax HB) to less than 20 yo 11/01/1998,02/10/1997,02/14/1995 MMR, measles mumps and rubel la Live (Priorix; M-M-R II) 12mo and older 10/20/1993,09/03/1990 Meningococcal MCV4P 04/10/2007 OPV 11/04/1990, 0,01/16/1990,10/10 Td Tetanus diptheria (Tdvax) 7yo and older 11/21/2001 Tdap Tetanus diptheria acell ular pertussis (Boostrix; Adacel) 7yo and older 06/19/2023,04/10/2007 Varicella live (Varivax) 12m o and older 02/10/1997 Surgical History Surgery Date Site/Laterality Comments CERVICAL BIOPSY W/ LOOP ELECTRODE EXCISION 05/04/2015 PROCEDURE: [place] CONIZATION CERVIX W/WO D&C RPR ELTRD EXC; COMMENT: AVE 2 STOMACH SURGERY 2018 PROCEDURE: [place] UNLISTED PROCEDURE STOMACH; COMMENT: sleeve OTHER SURGICAL HISTORY 2019 PROCEDURE: HISTORY OTHER; COMMENT: Gastric sleeve Medical History Medical History Date Comments Streptococcal sore throat DX:Str eptococcal sore throat Swelling of limb 10/2005 DX:Swelling of limb; COMMENT: seen ghazal/dr prem mares Jaundice, unspecified, not of 1992 DX:Jaundice, unspecified, not of ; COMMENT: in [place]/2nd to intestinal problems ?constipation? Nexplanon in place 05/2016 DX:Nexplanon in place; COMMENT: left arm History of ectopic 01/02/2022 DX: History of ectopic H/O gastric sleeve 2018 DX:H/O gastri c sleeve; COMMENT: 2019 Family History Medical History Relation Name Comments Colon cancer Father Stroke Father Breast cancer Maternal Grandmother ? unkn own age. Stroke Mother Diabetes Other pat aunt aodm Ovarian cancer Neg Hx Relation Name Status Comments Brother 1 Alive high cholestero l Brother 2 Alive Father Alive GERD,arthritis Maternal Grandfather Maternal Grandmother Mother Alive CAD with [place] at 42yrs Other Paternal Grandfather Paternal Grandmother Social History Tobacco Use Types Packs/Day Years Used Date Smoking Tobacco: Never Smokeless Tobacco: Never Alcohol Use Standard Drinks/Week Comments Yes 0 (1 standard drink = 0.6 oz pur e alcohol) Comments Unknown Sex and Gender Information Value Date Recorded Sex Assigned at Not on file Legal Sex Female 1:30 AM EST Gender Identity Not on file Sexual Orientation Not on file Obstetrics History Last Filed Vital Signs Vital Sign Reading Time Taken Comments Blood Pressure 124/82 06/19/2023 8:45 AM EST Pulse 84 06/19/2023 8:45 AM EST Temperature - - Respiratory Rate - - Oxygen Saturation - - Inhaled Oxygen Concentration - - Weight 79.4 kg (175 lb) 06/19/2023 8:45 AM EST Height 165.1 cm (5' 5 ) 06/19/2023 8:45 AM EST Body Mass Index 29.12 06/19/2023 8:45 AM EST Plan of Treatment Upcoming Encounters Date Type Department Care Team (Late st Contact Info) Description 03/17/2025 8:30 AM EDT Office Visit Adult Medicine [address] [phone] Haim Morse PA [address] [place] [phone] Health Maintenance Due Date Last Done Comments Cervical Cancer Screening: Pap Smear 03/22/2020 03/22/2017 HIV Screening 05/06/2022 Hepatitis C Screening 05/06/2022 Social Influencers of Health Screening 05/06/2022 Depression Screening 06/03/2024 COVID-19 Vaccine ( season) 2025 Influenza Vaccine (#1) 2025 Cholesterol Screening (Lipid Panel) 05/07/2028 05/07/2023 DTaP,Tdap,and Td Vaccines (9 - Td or Tdap) 06/19/2033 06/19/2023, 04/10/2007, 11/21/2001, Additional history exists HIB Vaccines Completed 11/04/1990 IPV Vaccines Completed 11/04/1990, 09/1990, 03/18/1990, Additional history exists MMR Vaccines Completed 10/20/1993, 09/03/1990 Varicella Vaccines Aged Out 02/10/1997 No longer eligible based on patient's age to complete this topic Hepatitis B Vaccines Completed 11/01/1998, 02/10/1997, 02/14/1995 Meningococcal ACWY Vaccine Completed 04/10/2007 HPV Vaccines Completed 11/13/2007, 06/04, 04/10/2007 Hepatitis A Vaccines Aged Out No long er eligible based on patient's age to complete this topic Meningococcal B Vaccine Aged Out No l onger eligible based on patient's age to complete this topic Pneumococcal Vaccine: Pediatrics (0 to 5 Years) and At-Risk Patients (6 to 49 Years) Aged Out No longer eligible based on patient's age to complete this topic RSV Immunization Patients Under 20 months Aged Out No longer eligible based on patient's age to complete this topic Procedures Procedure Name Priority Date/Time Associated Diagnosis Comments LIPID PANEL Routine 05/07/2023 PAP SMEAR Routine 03/22/2017 from Last 3 Months or Most Recently Relevant to Health Maintenance Results * (ABNORMAL) Lipid panel (05/07/2023) LDL/HDL Ratio 2 0 - 4 Triglycerides 94 0 - 150 mg/dL Cholesterol 210(A) 0 - 200 mg/dL HDL 88 >=40 mg/dL LDL Cholesterol 104(A) 0 - 100 mg/dL Blood Venous blood specimen / Unknown Historical Provider LAB BLOOD ORDERABLES Ema l Result * Pap Smear (03/22/2017) Pap smear negative, abstracted us Historical Provider HEALTH MAINTENANCE Final Result from Last 3 Months or Most Recently Relevant to Health Maintenance Insurance [facility] Care Teams Sharepoint Solutions Architect Relationship Specialty Start Date End Date Rox Rico MD PCP - General 06/12/22
== END 2025-02-17 10:30 | disposition home or self-care (01) ==
LOC: HO.HWS 09:54
PROVIDERS: PCP Internal Medicine; Visit Provider Obstetrics & Gynecology
DX: Z01.419 Encounter for gynecological examination (general) (routine) without abnormal findings (principal); N89.8 Other specified noninflammatory disorders of vagina
CPT/HCPCS: 99395; 99459

== ENCOUNTER 2025-02-17 09:54 | Outpatient (REF) | payer OTHER, SELFPAY ==
--- OUTSIDE RECORDS SUMMARY | 2025-02-17 13:04 | XMS_ITS ---
Author Name [facility] Organization Unknown Care Team Organization Name Specialty Phone Email Start Date End Da te [facility] Rox Rico Primary Care 10/08/2022 024 [facility] Alicia Bacon Primary Care 04/10/2022
[2025-02-18 04:42] LABS: Syphilis Screen Nonreactive (Nonreactive)
[2025-02-18 04:50] LABS: HBsAGNum1 0.32 S/CO (0.00-0.99); HIV Num 1 0.05 S/CO (0.00-0.99); Hepatitis B Surface Antigen Negative (Negative); ~HepC Num1 0.13 S/CO (0.00-0.79); ~Hepatitis C Antibody Nonreactive (Nonreactive)
== END 2025-02-17 09:55 | disposition home or self-care (01) ==
LOC: HO.LAB 09:54
PROVIDERS: PCP Internal Medicine; Visit Provider Obstetrics & Gynecology
DX: Z01.419 Encounter for gynecological examination (general) (routine) without abnormal findings (principal); N89.8 Other specified noninflammatory disorders of vagina; Z20.2 Contact with and (suspected) exposure to infections with a predominantly sexual mode of transmission; Z11.4 Encounter for screening for human immunodeficiency virus [HIV]; Z11.59 Encounter for screening for other viral diseases
CPT/HCPCS: 36415; 86780; 86803; 87340; 87389; 99395

== ENCOUNTER 2025-02-17 11:13 | Outpatient (REF) | payer OTHER, SELFPAY ==
[2025-02-18 08:39] LABS: Bacterial Vaginosis PCR NEGATIVE (Negative); Candida Group PCR NOT DETECTED (Not Detect); Candida glab krusei PCR NOT DETECTED (Not Detect); Trichomonas vaginalis PCR NOT DETECTED (Not Detect)
[2025-02-18 09:11] LABS: CT PCR NOT DETECTED (Not Detect.); NG PCR NOT DETECTED (Not Detect.)
== END 2025-02-17 11:14 | disposition home or self-care (01) ==
LOC: HO.LNP 11:13
PROVIDERS: Visit Provider Obstetrics & Gynecology
DX: Z11.3 Encounter for screening for infections with a predominantly sexual mode of transmission (principal); Z11.8 Encounter for screening for other infectious and parasitic diseases; Z11.2 Encounter for screening for other bacterial diseases; N89.8 Other specified noninflammatory disorders of vagina
CPT/HCPCS: 81515; 87491; 87591

== ENCOUNTER 2025-03-05 10:57 | Outpatient (AMB) | payer OTHER, SELFPAY ==
--- NOTE | 2025-03-05 10:53 | A.OFFVIS_ITS ---
VS Expanded 03/05/25 10:58 Height 5 ft 5 in Weight 176 lb BMI 29.3 Intake Visit Reasons: (TV) PO LSG 08/28/18 Allergies No Known Allergies Allergy (Verified 03/18/24 11:59) Medication List - Last Reconciled 03/05/25 by ANGY Wyatt [id number] K 45 mg iron- 800 mcg-120 mcg (Bariatric Multi vitamins) caps PO pantoprazole 40 mg PO DAILY HPI Comments Details: This?is a?34?yo F who is s/p LSG 08/28/2018. Presents for post op visit. Weight stable since last OV in Jul 2023. No complaints of nausea, emesis, abdominal pain or reflux, or constipation. She contacted Dr Sanchez to let him know about heartburn. He asked her to make an appointment. She reports heartburn with many foods- spicy, chocolate, banana. Does not get heartburn with Premier protein shakes or water. Present meal plan includes: bar for breakfast, 30g shake for lunch, and protein/veg for dinner If she is very busy at work and does not have time to eat may substitute bar for another shake as she is allowed to keep beverages with her while working Exercise routine includes: on her 2 days off and on day that she starts work at 11am, try to get 20-30min exercise on stationary bike or doing an exercise she enjoys. Pt reports problems of excess skin of abdomen. It is difficult to clean in skin fold. Moisture collects in skin fold and has an unpleasant odor. Reports chafing/rashes from skin folds running together. Has to wear special clothing (compressive waistband) to hold skin in place and prevent discomfort. Skin feels heavy and it is uncomfortable to get up/out of bed due to skin in the way. Clotrimazole ointment has not helped. [facility] Medical History Ectopic Ectopic Ruptured right tubal ectopic causing hemoperitoneum Surgical History Bariatric surgery status Hx of laparoscopic partial gastrectomy Family History Father Colon cancer Maternal Grandmother Breast CA Daughter No problems noted. 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 Sexual orientation: Straight/Heterosexual Gender identity: Female Female Reproductive History Menstrual Age of Menarche: 11 Telehealth Telehealth Telehealth Platform: Telephone Location of provider rendering services: other Location of patient: other Patient Identification confirmed using: Name, : Yes Telehealth method: voice only Patient verbally consented to treatment: Yes Patient verbally consented to billing insurance company: Yes Patient informed of any privacy concerns related to visit: Yes Minutes spent on Phone/Video with Pt.: 17 Assessment & Plan Assessment & Plan (1) Status post sleeve gastrectomy: Code(s): Z90.3 - Acquired absence of stomach [part of] Category: Medical (2) Overweight: Code(s): E66.3 - Overweight Category: Medical Plan Pt continues to experience reflux with many foods. I think it is likely dietary related since she does not experience reflux with shakes or water. Will order UGI to r/o recurrent hiatal hernia. Gave her [employer] alejandro info and encouraged her to download and follow closely. This will also help her get toward her goal of BMI <27 for skin removal surgery. RTC 05/07 at 9:45am, TV. Orders: Orders [place] upper GI w air Today K21.9 - Gastro-esophageal reflux disease without esophagitis, Z90.3 - Acquired absence of stomach [part of]
[2025-03-05 10:58] VITALS: BMI 29.3
--- OUTSIDE RECORDS SUMMARY | 2025-03-05 12:15 | XMS_ITS | Clinical Summary ---
Author Organization [facility] it Address [address] [place] [address] Care Team Providers Care Vba Developer Name Role Phone Rox Rico MD Primary Care Provider [phone] Allergies No known active allergies Medications cholecalciferol [...] Obesity (BMI 35.0-39.9 without comorbidity) 07/05 Immunizations Immunization Administration Dates Next Due DTP 10/20/1993, 1,03/18/1990,01/16,1989 [id number] (Pentacel) 2mo to less than 5yo 11/04/1990 [...] BIOPSY W/ LOOP ELECTRODE EXCISION 05/04/2015 PROCEDURE: [place] CONIZATION CERVIX W/WO D&C RPR ELTRD EXC; COMMENT: AVE 2 STOMACH SURGERY 2018 PROCEDURE: [place] UNLISTED PROCEDURE STOMACH; COMMENT: sleeve OTHER SURGICAL HISTORY 2019 PROCEDURE: HISTORY OTHER; COMMENT: Gastric sleeve Medical History Medical History Date Comments Streptococcal sore throat DX:Str eptococcal sore throat Swelling of limb 10/2005 DX:Swelling of limb; COMMENT: seen ghazal/dr prem mares Jaundice, unspecified, not of 1992 DX:Jaundice, unspecified, not of ; COMMENT: in [place]/2nd to intestinal problems ?constipation? Nexplanon in place [...] Grandfather Maternal Grandmother Mother Alive CAD with [place] at 42yrs Other Paternal Grandfather Paternal Grandmother [...] 8:30 AM EDT Office Visit Adult Medicine [address] [phone] Haim Morse PA [address] [place] [phone] Health Maintenance Due Date Last Done Comments Cervical Cancer Screening: Pap Smear 03/22/2020 03/22/2017 HIV Screening 05/06/2022 Hepatitis C Screening 05/06/2022 Social Influencers of Health Screening 05/06/2022 Depression Screening 06/03/2024 COVID-19 Vaccine ( season) 2025 Influenza Vaccine (#1) 2025 Cholesterol Screening (Lipid Panel) 05/07/2028 05/07/2023 DTaP,Tdap,and Td Vaccines (9 - Td or Tdap) 06/19/2033 06/19/2023, 04/10/2007, 11/21/2001, Additional history exists RSV Immunization Adult Patients (1 - 1-dose 75+ series) 2064 HIB Vaccines Completed 11/04/1990 IPV Vaccines Completed [...] Procedure Name Priority Date/Time Associated Diagnosis Comments EXTERNAL CLINICAL LAB 02/17/2025 LIPID PANEL Routine 05/07/2023 PAP SMEAR Routine 03/22/2017 from Last 3 Months or Most Recently Relevant to Health Maintenance Results * External clinical lab (02/17/2025) Provider Arthur Onbase LAB BLOOD ORDERABLES Fin al Result * (ABNORMAL) Lipid panel (05/07/2023) LDL/HDL Ratio 2 0 - 4 Triglycerides 94 0 - 150 mg/dL Cholesterol 210(A) 0 - 200 mg/dL HDL 88 >=40 mg/dL LDL Cholesterol 104(A) 0 - 100 mg/dL Blood Venous blood specimen / Unknown us Historical Provider LAB BLOOD ORDERABLES Ema l Result * Pap Smear (03/22/2017) Pap smear negative, abstracted Historical Provider HEALTH MAINTENANCE Final Result from Last 3 Months or Most Recently Relevant to Health Maintenance Insurance [facility] PLAN Care Teams Vba Developer Relationship Specialty Start Date End Date Rox Rico MD PCP - General 06/12/22
== END 2025-03-05 11:17 | disposition home or self-care (01) ==
LOC: HO.HBS 10:57
PROVIDERS: PCP Internal Medicine; Visit Provider Physician Assistant Surgical
DX: E66.3 Overweight (principal); Z68.29 Body mass index [BMI] 29.0-29.9, adult; Z90.3 Acquired absence of stomach [part of]; Z98.84 Bariatric surgery status
CPT/HCPCS: 98013

== ENCOUNTER 2025-03-30 08:49 | Outpatient (REF) | payer OTHER, SELFPAY ==
--- NOTE | ~2025-03-30 | FL_ITS ---
EXAMINATION: XR FLUOROSCOPY UPPER GI WITH AIR CLINICAL INFORMATION: History of gastric sleeve surgery in 2019. Status post reflux, pain in the throat COMPARISON: None available. TECHNIQUE: Upper GI series performed with thick and thin barium, effervescent granules. FINDINGS: Esophageal motility and distention is within normal limits. No fixed narrowing/stricture is seen. No mass or mucosal lesion is seen. There is normal passage of the barium through the stomach into the small bowel. Suboptimal gaseous distention of the stomach. No mass lesion is identified. Limited evaluation of mucosal lesions. There is a gastroesophageal reflux in the supine position. No significant hiatal hernia is identified. FLUOROSCOPY TIME: 42 seconds DOSE AREA PRODUCT: 2355 uGy-m2 (microgray-meter squared) FL/FL upper GI w air IMPRESSION: Gastroesophageal reflux in the supine position. No evidence of mass or mucosal lesion. Electronically signed by: Isaias Guzmán MD 03/30/2025 04:58 PM EDT
--- OUTSIDE RECORDS SUMMARY | 2025-03-30 09:36 | XMS_ITS | Encounter Summary ---
Author Organization [facility] Address [address] [place] [address] Care Team Providers Care Body Recall Instructor Name Role Phone Rox Rico MD Primary Care Provider [phone] Encounter Details Date Type Department Care Team ([facility] st Contact Info) Description 03/17/2025 Results Follow-Up Adult Medicine [address] [phone] Haim Morse PA [address] [place] [id number] Social History Tobacco Use Types Packs/Day Years Used Date Smoking Tobacco: Never Smokeless Tobacco: Never Alcohol Use Standard Drinks/Week Comments Yes 0 (1 standard drink = 0.6 oz pur e alcohol) few glasses few times a week Housing Instability Answer Date Recorde d Are you worried that in the next 2 months you may not have stable housing? No 03/17/2025 Food Access & Nutrition Answer Date Rec orded Do you have access to a vari ety of food including fruits and vegetables? Yes 03/17/2025 Access to Healthcare Answer Date Record ed Within the last 3 months, ho w many times did you visit the emergency department for your medical care? 0 03/17/2025 Health Literacy Answer Date Recorded How often do you need to hav e someone help you when you read instructions, pamphlets, or other written material from your doctor or pharmacy? Never 03/17/2025 Caregiver: How often do you need to have someone help you when you read instructions, pamphlets, or other written material from your doctor or pharmacy? Not on file 03/17/2025 Financial Risk Answer Date Recorded How hard is it for you to pa y for the very basics like food, housing, medical care, and air conditioning / heating? Not very hard 03/17/2025 Transportation Answer Date Recorded Has the lack of transportati on kept you from meetings, work, or from getting things needed for daily living? No Has the lack of transportati on kept you from medical appointments or from getting medications? No 03/17/2025 Social Isolation Answer Date Recorded How often do you feel lonely or isolated from th ose around you? Never 03/17/2025 Food Risk Answer Date Recorded Within the past 12 months we worried whether our food would run out before we got money to buy more. Never true 03/17/2025 Within the past 12 months th e food we bought just didn't last and we didn't have money to get more. Never true 03/17/2025 Dependent Care Answer Date Recorded Do you need help finding or paying for care for your loved ones. For example, child development director or elderly care for an older adult? No 03/17/2025 Education Answer Date Recorded Do you think completing more education or training, like finishing a GED, going to college, or learning a trade, would be helpful for you? Yes 03/17/2025 Employment and Income Answer Date Recor ded During the last four weeks, have you been actively looking for work? Yes 03/17/2025 Comments Unknown Sex and Gender Information Value Date Recorded Sex Assigned at Not on file Legal Sex Female 1:30 AM EST Gender Identity Not on file Sexual Orientation Not on file documented as of this encounter Ordered Prescriptions Prescription Sig Dispense Quantity Refills Last Filled Start Date End Date ferrous sulfate 325 mg (65 mg iron) EC tabletIndications:I graciela deficiency anemia, unspecified iron deficiency anemia type Take 1 tablet (325 mg total) by mouth 3 (three) times a day with meals. Do not crush, chew, or split. 90 each 2 03/17/2025 documented in this encounter Plan of Treatment Upcoming Encounters Date Type Department Care Team ([facility] Contact Info) Description 09/15/2025 10:00 AM EDT Office Visit Adult Medicine [address] [phone] Rox Rico MD [address] [place] [address] 03/23/2026 9:30 AM EDT Office Visit Adult Medicine [address] [phone] oRx Rico MD [address] [place] [address] Scheduled Orders Name Type Priority Associated Diagnoses Orde r Schedule CBC and differential Lab Routine Iron deficiency anemia, unspecified iron deficiency anemia type Expected: 05/17/2025, Expires: 03/17/2026 Iron and TIBC Lab Routine Iron deficiency anemia, unspecified iron deficiency anemia type Expected: 05/17/2025, Expires: 03/17/2026 Ferritin Lab Routine Iron deficiency anemia, unspecified iron deficiency anemia type Expected: 05/17/2025, Expires: 03/17/2026 documented as of this encounter Visit Diagnoses Diagnosis Iron deficiency anemia, unspecified iron deficiency anemia type- Primary documented in this encounter Additional Health Concerns Assessment Noted Time PHQ-9 Depression Total Score: 1 03/17/20 25 8:51 AM EDT documented as of this encounter Care Teams Body Recall Instructor Relationship Specialty Start Date End Date Rox Rico MD PCP - General 06/12/22 documented as of this encounter
--- OUTSIDE RECORDS SUMMARY | 2025-03-30 09:36 | XMS_ITS | Clinical Summary ---
Author Organization [place] [id number] [facility] Address [address] [place] [address] Phone Care Team Providers Care Nutrition And Dietetics Instructor Name Role Phone Rox Rico MD Primary Care Provider [phone] Allergies No known active allergies Medications cholecalciferol (VITAMIN D-3) 50 mcg (2,000 unit) capsule Take 1 capsule (2,000 Units total) by mouth 1 (one) time each day. 05/08/2023 Active ferrous sulfate 325 mg (65 mg elemental iron) tablet Take 1 tablet (325 mg total) by mouth 1 (one) time each day. 05/08/2023 Active multivitamin,the r and minerals (VITAMINS AND MINERALS ORAL) Take by mouth daily. Active ferrous sulfate 325 mg (65 mg iron) EC tabletIndication s:Iron deficiency anemia, unspecified iron deficiency anemia type Take 1 tablet (325 mg total) by mouth 3 (three) times a day with meals. Do not crush, chew, or split. 90 each 2 03/17/2025 Active Active Problems Problem Noted Date Diagnosed Date H/O gastric sleeve 01/02/2022 Overview (03/17/2025): 2019 Vitamin D deficiency 04/06/2021 Iron deficiency anemia 04/06/2021 Pes planus 04/25/2020 Hematuria, microscopic 06/19/2016 Abnormal Pap smear of cervix 01/31/2015 Overview (06/01/2024): Colpo showed AVE [address] and LEEP done 05/2015. ? Positive external margin, but repeat Pap and colposcopy normal. Repeat Pap and HPV 01/2016 with Annual exam Obesity (BMI 35.0-39.9 without comorbidity) 07/05 Encounters Date Type Department Care Team Description 03/17/2025 8:30 AM EDT Office Visit Adult [facility] [address] [place] [address] Haim Morse PA Routine physical examination (Primary Dx); Vitamin D deficiency; Iron deficiency anemia, unspecified iron deficiency anemia type; Muscle cramping 03/17/2025 Results Follow-Up Adult [address] [phone] Haim Morse PA from Last 3 Months Immunizations Immunization Administration Dates Next Due DTP 10/20/1993, 1,03/18/1990,01/16,1989 [id number] (Pentacel) 2mo to less than 5yo 11/04/1990 [...] BIOPSY W/ LOOP ELECTRODE EXCISION 05/04/2015 PROCEDURE: UT CONIZATION CERVIX W/WO D&C RPR ELTRD EXC; COMMENT: AVE 2 STOMACH SURGERY 2018 PROCEDURE: UT UNLISTED PROCEDURE STOMACH; COMMENT: sleeve OTHER SURGICAL HISTORY 2019 PROCEDURE: HISTORY OTHER; COMMENT: Gastric sleeve ECTOPIC SURGERY 2021 Medical History Medical History Date Comments Streptococcal sore throat DX:Str eptococcal sore throat Swelling of limb 10/2005 DX:Swelling of limb; COMMENT: seen ghazal/dr prem mares Jaundice, unspecified, not of 1992 DX:Jaundice, unspecified, not of ; COMMENT: in [place]/2nd to intestinal problems ?constipation? Nexplanon in place 05/2016 DX:Nexplanon in place; COMMENT: left arm History of ectopic 01/02/2022 DX: History of ectopic H/O gastric sleeve 2018 DX:H/O gastri c sleeve; COMMENT: 2018 Family History Medical History Relation Name Comments Colon cancer Father Stroke Father Breast cancer Maternal Grandmother ? unkn own age. Stroke Mother Diabetes Other pat aunt aodm Ovarian cancer Neg Hx Relation Name Status Comments Brother 1 Alive high cholestero l Brother 2 Alive Father Alive GERD,arthritis Maternal Grandfather Maternal Grandmother Mother Alive CAD with [place] at 42yrs Other Paternal Grandfather Paternal Grandmother Social History Tobacco Use Types Packs/Day Years Used Date Smoking Tobacco: Never Smokeless Tobacco: Never Tobacco Cessation:Counseling Given: Not Answered Alcohol Use Standard Drinks/Week Comments Yes 0 [...] care for your loved ones. For example, children's attendant or elderly care for an older adult? [...] Sign Reading Time Taken Comments Blood Pressure 108/78 03/17/2025 8:24 AM EDT Pulse 84 03/17/2025 8:24 AM EDT Temperature 36.7 C (98.1 F) 03/17/2025 8:24 AM EDT Respiratory Rate 12 03/17/2025 8:24 AM EDT Oxygen Saturation - - Inhaled Oxygen Concentration - - Weight 81.6 kg (180 lb) 03/17/2025 8:24 AM EDT Height 166.4 cm (5' 5.5 ) 03/17/2025 8:24 AM EDT Body Mass Index 29.5 03/17/2025 8:24 AM EDT Plan of Treatment Upcoming Encounters Date Type Department Care Team (Late st Contact Info) Description 09/15/2025 10:00 AM EDT Office Visit [address] [phone] Rox Rico MD [address] [place] [address] 03/23/2026 9:30 AM EDT Office Visit [address] [phone] Rox Rico MD [address] [place] [address] Health Maintenance Due Date Last Done Comments Hepatitis C Screening 05/06/2022 Cervical Cancer Screening: Pap Smear 03/03/2026 03/03/2021, 03/22/2017 Social Influencers of Health Screening 03/17/2026 03/17/2025 Cholesterol Screening (Lipid Panel) 03/17/2030 03/17/2025, 05/07/2023 DTaP,Tdap,and Td Vaccines (9 - Td [...] 04/10/2007 HPV Vaccines Completed 11/13/2007, 06/04, 04/10/2007 HIV Screening Addressed 02/17/2025 Overridden wit h the intention of not completing the topic Depression Screening Completed 03/17/2025 COVID-19 Vaccine Discontinued Hepatitis A Vaccines Aged Out No long er eligible based on patient's age to complete this topic Influenza Vaccine Discontinued Meningococcal B Vaccine Aged Out No l [...] Procedure Name Priority Date/Time Associated Diagnosis Comments CBC WITH AUTO DIFFERENTIAL Routine 03/17/2025 9:08 AM EDT Routine physical examination Iron deficiency anemia, unspecified iron deficiency anemia type CBC AND DIFFERENTIAL Routine 03/17/2025 9:08 AM EDT Routine physical examination Iron deficiency anemia, unspecified iron deficiency anemia type COMPREHENSIVE METABOLIC PANEL Routine 03/17/2025 9:08 AM EDT Routine physical examination HEMOGLOBIN A1C Routine 03/17/2025 9:08 AM EDT Routine physical examination LIPID PANEL WITH REFLEX TO DIRECT LDL Routine 03/17/2025 9:08 AM EDT Routine physical examination THYROID STIMULATING HORMONE WITH REFLEX TO FREE T4 AND FREE T3 Routine 03/17/2025 9:08 AM EDT Routine physical examination VITAMIN D 25 HYDROXY Routine 03/17/2025 9:08 AM EDT Vitamin D deficiency IRON AND TIBC Routine 03/17/2025 9:08 AM EDT Iron deficiency anemia, unspecified iron deficiency anemia type FERRITIN Routine 03/17/2025 9:08 AM EDT Iron deficiency anemia, unspecified iron deficiency anemia type MAGNESIUM Routine 03/17/2025 9:08 AM EDT Muscle cramping EXTERNAL CLINICAL LAB 02/17/2025 HM PAP SMEAR Routine 03/22/2017 from Last 3 Months or Most Recently Relevant to Health Maintenance Results * Thyroid stimulating hormone with reflex to free t4 and free t3 (03/17/2025 9:08 AM EDT) TSH 1.44 0.40 - 4.00 mcIU/mL LAB CHEMISTRY METHOD 03/17/2025 1:10 PM T [facility] Blood Venous blood specimen / Unknown Venipuncture / Unknown 03/17/2025 9:08 AM EDT 03/17/2025 9:08 AM EDT us Haim TRAVIS LAB BLOOD ORDERABLES Final Res ult [facility] [address] [place] [address], [place] [phone] * Lipid panel with reflex to direct LDL (03/17/2025 9:08 AM EDT) Cholesterol 177 0 - 200 mg/dL LAB CHEMISTRY METHOD 03/17/2025 12:38 PM [facility] Triglycerides 57 0 - 150 mg/dL LAB CHEMISTRY METHOD 03/17/2025 12:38 PM [facility] HDL 99 >=40 mg/dL LAB CHEMISTRY METHOD 03/17/2025 12:38 PM [facility] LDL Calculated 67 0 - 100 mg/dL LAB CHEMISTRY METHOD 03/17/2025 12:38 PM [facility] Comment:Estimated LDL Calcul ated using equation: Total cholesterol - HDL cholesterol - (Triglycerides/5) VLDL Cholesterol Geovanni 11.4 mg/dL LAB CHEMISTRY METHOD 03/17/2025 12:38 PM [facility] Non HDL Chol. (LDL+VLDL) 78 <145 mg/dL LAB CHEMISTRY METHOD 03/17/2025 12:38 PM [facility] Chol/HDL Ratio 1.8 0.0 - 4.4 LAB CHEMISTRY METHOD 03/17/2025 12:38 PM [facility] Blood Venous blood specimen / Unknown Venipuncture / Unknown 03/17/2025 9:08 AM EDT 03/17/2025 9:08 AM EDT Haim TRAVIS LAB BLOOD ORDERABLES Final Res ult [facility] [address] [place] [address], * (ABNORMAL) CBC auto differential (03/17/2025 9:08 AM EDT) WBC 8.5 4.8 - 10.8 K/mcL LAB HEMETOLOGY METHOD 03/17/2025 10:25 AM EDT [facility] RBC 4.40 3.80 - 4.80 M/[facility] LAB HEMETOLOGY METHOD 03/17/2025 10:25 AM [facility] Hemoglobin 8.9(L) 11.5 - 16.0 g/dL LAB HEMETOLOGY METHOD 03/17/2025 10:25 AM [facility] Hematocrit 32.1(L) 35.0 - 47.0 % LAB HEMETOLOGY METHOD 03/17/2025 10:25 AM [facility] MCV 72.5(L) 79.0 - 98.0 FL LAB HEMETOLOGY METHOD 03/17/2025 10:25 AM [facility] MCH 20.1(L) 27.0 - 32.0 pcg LAB HEMETOLOGY METHOD 03/17/2025 10:25 AM [facility] MCHC 27.7(L) 32.0 - 37.0 g/dL LAB HEMETOLOGY METHOD 03/17/2025 10:25 AM [facility] RDW 18.7(H) 11.0 - 15.0 % LAB HEMETOLOGY METHOD 03/17/2025 10:25 AM [facility] Platelets 378 130 - 400 K/mcL LAB HEMETOLOGY METHOD 03/17/2025 10:25 AM [facility] MPV 10.2 7.0 - 11.0 FL LAB HEMETOLOGY METHOD 03/17/2025 10:25 AM [facility] NRBC 0.0 <1.0 % LAB HEMETOLOGY METHOD 03/17/2025 10:25 AM [facility] NRBC Absolute 0.00 <0.10 K/mcL LAB HEMETOLOGY METHOD 03/17/2025 10:25 AM [facility] Neutrophils Relative 74.2 % LAB HEMETOLOGY METHOD 03/17/2025 10:25 AM [facility] Lymphocytes Relative 17.7 % LAB HEMETOLOGY METHOD 03/17/2025 10:25 AM [facility] Monocytes Relative 5.7 % LAB HEMETOLOGY METHOD 03/17/2025 10:25 AM [facility] Eosinophils Relative 1.2 % LAB HEMETOLOGY METHOD 03/17/2025 10:25 AM [facility] Basophils Relative 0.8 % LAB HEMETOLOGY METHOD 03/17/2025 10:25 AM [facility] Immature Granulocytes Relative 0.4 % LAB HEMETOLOGY METHOD 03/17/2025 10:25 AM [facility] Neutrophils Absolute 6.30 1.50 - 7.00 K/mcL LAB HEMETOLOGY METHOD 03/17/2025 10:25 AM [facility] Lymphocytes Absolute 1.50 1.00 - 5.00 K/mcL LAB HEMETOLOGY METHOD 03/17/2025 10:25 AM [facility] Monocytes Absolute 0.48 0.20 - 1.00 K/mcL LAB HEMETOLOGY METHOD 03/17/2025 10:25 AM [facility] Eosinophils Absolute 0.10 0.00 - 0.50 K/mcL LAB HEMETOLOGY METHOD 03/17/2025 10:25 AM EDT [facility] Basophils Absolute 0.07 0.00 - 0.20 K/[facility] LAB HEMETOLOGY METHOD 03/17/2025 10:25 AM EDT [facility] Immature Granulocytes Absolute 0.03 0.00 - 0.03 K/[facility] LAB HEMETOLOGY METHOD 03/17/2025 10:25 AM EDT [facility] Blood Venous blood specimen / Unknown Venipuncture / Unknown 03/17/2025 9:08 AM EDT 03/17/2025 9:08 AM EDT Haim Morse SD LAB BLOOD ORDERABLES Final Res ult Performing Organization Address City/[facility]/ZIP Co de Phone Number [facility] [address] [place] [address], * (ABNORMAL) Iron and TIBC (03/17/2025 9:08 AM EDT) Iron 13(L) 40 - 150 mcg/dL LAB CHEMISTRY METHOD 03/17/2025 12:34 PM EDT [facility] TIBC 584(H) 250 - 450 mcg/dL LAB CHEMISTRY METHOD 03/17/2025 12:34 PM EDT [facility] Iron Saturation 2(L) 15 - 50 % LAB CHEMISTRY METHOD 03/17/2025 12:34 PM EDT [facility] Blood Venous blood specimen / Unknown Venipuncture / Unknown 03/17/2025 9:08 AM EDT 03/17/2025 9:08 AM EDT Haim TRAVIS LAB BLOOD ORDERABLES Final Res ult Performing Organization Address City/[facility]/ZIP Co de Phone Number [facility] [address] [place] [address], [place] [phone] * Vitamin D 25 hydroxy (03/17/2025 9:08 AM EDT) [facility] Vit D, 25-Hydroxy 30.2 30.0 - 80.0 ng/mL LAB CHEMISTRY METHOD 03/17/2025 1:09 PM EDT [facility] Blood Venous blood specimen / Unknown Venipuncture / Unknown 03/17/2025 9:08 AM EDT 03/17/2025 9:08 AM EDT Haim TRAVIS LAB BLOOD ORDERABLES Final Res ult [facility] [address] [place] [address], [place] [phone] * Magnesium (03/17/2025 9:08 AM EDT) [facility] Magnesium 1.9 1.9 - 2.6 mg/dL LAB CHEMISTRY METHOD 03/17/2025 12:34 PM EDT [facility] Blood Venous blood specimen / Unknown Venipuncture / Unknown 03/17/2025 9:08 AM EDT 03/17/2025 9:08 AM EDT Haim TRAVIS LAB BLOOD ORDERABLES Final Res ult [facility] [address] [place] [address], [place] [phone] * Hemoglobin A1c (03/17/2025 9:08 AM EDT) [facility] Hemoglobin A1C 5.5 <6.5 % LAB CHEMISTRY METHOD 03/17/2025 1:09 PM EDT [facility] Mean Bld Glu Estim. 111 mg/dL LAB CHEMISTRY METHOD 03/17/2025 1:09 PM EDT [facility] Blood Venous blood specimen / Unknown Venipuncture / Unknown 03/17/2025 9:08 AM EDT 03/17/2025 9:08 AM EDT Haim TRAVIS LAB BLOOD ORDERABLES Final Res ult Performing Organization Address [facility]/ZIP Co de Phone Number [facility] [address] [place] [address], [place] [phone] * (ABNORMAL) Ferritin (03/17/2025 9:08 AM EDT) Pathologist [facility] Ferritin 5(L) 8 - 252 ng/mL LAB CHEMISTRY METHOD 03/17/2025 12:38 PM EDT [facility] Blood Venous blood specimen / Unknown Venipuncture / Unknown 03/17/2025 9:08 AM EDT 03/17/2025 9:08 AM EDT Haim TRAVIS LAB BLOOD ORDERABLES Final Res ult Performing Organization Address [facility]/ZIP Co de Phone Number [facility] [address] [place] [address], [place] [phone] * Comprehensive metabolic panel (03/17/2025 9:08 AM EDT) Pathologist [facility] Sodium 140 133 - 145 mmol/L LAB CHEMISTRY METHOD 03/17/2025 12:34 PM EDT [facility] Potassium 4.7 3.5 - 5.5 mmol/L LAB CHEMISTRY METHOD 03/17/2025 12:34 PM EDT [facility] Chloride 107 96 - 110 mmol/L LAB CHEMISTRY METHOD 03/17/2025 12:34 PM EDT [facility] CO2 28 21 - 32 mmol/L LAB CHEMISTRY METHOD 03/17/2025 12:34 PM EDT [facility] Anion Gap 5 3 - 11 LAB CHEMISTRY METHOD 03/17/2025 12:34 PM [facility] Glucose 89 70 - 100 mg/dL LAB CHEMISTRY METHOD 03/17/2025 12:34 PM [facility] BUN 15 5 - 25 mg/dL LAB CHEMISTRY METHOD 03/17/2025 12:34 PM [facility] Creatinine 0.89 0.50 - 1.10 mg/dL LAB CHEMISTRY METHOD 03/17/2025 12:34 PM [facility] eGFR 87 >=60 mL/min/1. 73m2 LAB CHEMISTRY METHOD 03/17/2025 12:34 PM [facility] Comment:Calculation based on the Chronic Kidney Disease Epidemiology Collaboration (CKD-EPI) equation refit without adjustment for race. BUN/Creatinine Ratio 16.9 LAB CHEMISTRY METHOD 03/17/2025 12:34 PM [facility] Calcium 9.2 8.5 - 10.5 mg/dL LAB CHEMISTRY METHOD 03/17/2025 12:34 PM [facility] AST (SGOT) 28 10 - 42 unit/L LAB CHEMISTRY METHOD 03/17/2025 12:34 PM [facility] ALT (SGPT) 34 10 - 60 unit/L LAB CHEMISTRY METHOD 03/17/2025 12:34 PM [facility] Alkaline Phosphatase 49 42 - 121 unit/L LAB CHEMISTRY METHOD 03/17/2025 12:34 PM [facility] Total Protein 6.9 6.0 - 8.0 g/dL LAB CHEMISTRY METHOD 03/17/2025 12:34 PM [facility] Albumin 3.7 3.2 - 5.0 g/dL LAB CHEMISTRY METHOD 03/17/2025 12:34 PM [facility] Total Bilirubin 0.3 0.0 - 1.4 mg/dL LAB CHEMISTRY METHOD 03/17/2025 12:34 PM [facility] Blood Venous blood specimen / Unknown Venipuncture / Unknown 03/17/2025 9:08 AM EDT 03/17/2025 9:08 AM EDT Haim TRAVIS LAB BLOOD ORDERABLES Final Res ult [facility] [address] [place] [address], [place] [phone] * External clinical lab (02/17/2025) Provider [facility] LAB BLOOD ORDERABLES Fin al Result * Pap Smear (03/22/2017) Pap smear negative, abstracted Historical Provider HEALTH MAINTENANCE Final Result from Last 3 Months or Most Recently Relevant to Health Maintenance Insurance [facility] Care Teams Nutrition And Dietetics Instructor Relationship Specialty Start Date End Date Rox Rico MD PCP - General 06/12/22
== END 2025-03-30 08:50 | disposition home or self-care (01) ==
LOC: HO.XRAY 08:49
PROVIDERS: PCP Internal Medicine; Visit Provider Physician Assistant Surgical
DX: K21.9 Gastro-esophageal reflux disease without esophagitis (principal); Z90.3 Acquired absence of stomach [part of]
CPT/HCPCS: 74246

== ENCOUNTER 2025-05-07 10:00 | Outpatient (AMB) | payer OTHER, SELFPAY ==
--- NOTE | 2025-05-07 09:46 | MHC.OFFVISWM ---
VS Expanded 05/07/25 10:03 Height 5 ft 5 in Weight 176 lb BMI 29.3 Intake Visit Reasons: Phone PO LSG 08/28/18 Allergies No Known Allergies Allergy (Verified 03/18/24 11:59) Medication List - Last Reconciled 05/07/25 by ANGY Wyatt celecoxib 100 mg PO BID methocarbamol 500 mg PO BEDTIME smaopmxgqjic-ntv-mozq-FA-vit K 45 mg iron- 800 mcg-120 mcg (Bariatric Multivitamins) caps PO pantoprazole 40 mg PO DAILY HPI Comments Details: This is a 34 yo F who is s/p LSG 08/28/2018. Weight stable since last OV in March 2025. No complaints of nausea, emesis, abdominal pain or reflux, or constipation. Pt has had improvement in heartburn. She previously reported heartburn with many foods- spicy, chocolate, banana. Does not get heartburn with [employer] protein shakes or water. She found that changing her diet was helpful in improvement. Found that when she was taking only protein shakes she did not need PPI. Present meal plan includes: bar for breakfast, 30g shake for lunch, and protein/veg for dinner If she is very busy at work and does not have time to eat may substitute bar for another shake as she is allowed to keep beverages with her while working downloaded [employer] alejandro but did not use Exercise routine includes: on her 2 days off and on day that she starts work at 11am, try to get 20-30min exercise on stationary bike or doing an exercise she enjoys. Pt reports problems of excess skin of abdomen. It is difficult to clean in skin fold. Moisture collects in skin fold and has an unpleasant odor. Reports chafing/rashes from skin folds running together. Has to wear special clothing (compressive waistband) to hold skin in place and prevent discomfort. Skin feels heavy and it is uncomfortable to get up/out of bed due to skin in the way. Clotrimazole ointment has not helped. [facility] Medical History Ectopic Ectopic Ruptured right tubal ectopic causing hemoperitoneum Surgical History Bariatric surgery status Hx of laparoscopic partial gastrectomy Family History Father Colon cancer Maternal Grandmother Breast CA Daughter No problems noted. 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 Sexual orientation: Straight/Heterosexual Gender identity: Female Female Reproductive History Menstrual Age of Menarche: 11 Telehealth Telehealth Telehealth Platform: Telephone Location of provider rendering services: practice address Location of patient: address on file Patient Identification confirmed using: Name, : Yes Telehealth method: voice only Patient verbally consented to treatment: Yes Patient verbally consented to billing insurance company: Yes Patient informed of any privacy concerns related to visit: Yes Minutes spent on Phone/Video with Pt.: 16 Results Reviewed Results Reviewed: Ordering Physician: Yumiko Figueroa Date of Service: 03/30/25 Procedure(s): FL upper GI w air Accession Number(s): [id number] cc: Yumiko Figueroa; Rox Rico MD~ Reason for Exam: Z90.3 - Acquired absence of stomach [part of] EXAMINATION: XR FLUOROSCOPY UPPER GI WITH AIR CLINICAL INFORMATION: History of gastric sleeve surgery in 2019. Status post reflux, pain in the throat COMPARISON: None available. TECHNIQUE: Upper GI series performed with thick and thin barium, effervescent granules. FINDINGS: Esophageal motility and distention is within normal limits. No fixed narrowing/stricture is seen. No mass or mucosal lesion is seen. There is normal passage of the barium through the stomach into the small bowel. Suboptimal gaseous distention of the stomach. No mass lesion is identified. Limited evaluation of mucosal lesions. There is a gastroesophageal reflux in the supine position. No significant hiatal hernia is identified. FLUOROSCOPY TIME: 42 seconds DOSE AREA PRODUCT: 2355 uGy-m2 (microgray-meter squared) FL/FL upper GI w air IMPRESSION: Gastroesophageal reflux in the supine position. No evidence of mass or mucosal lesion. Electronically signed by: Isaias Guzmán MD 03/30/2025 04:58 PM EDT RP Assessment & Plan Assessment & Plan (1) Overweight: Code(s): E66.3 - Overweight Category: Medical (2) Status post sleeve gastrectomy: Code(s): Z90.3 - Acquired absence of stomach [part of] Category: Surgical (3) Acid reflux: Code(s): K21.9 - Gastro-esophageal reflux disease without esophagitis Category: Medical Plan Pt is interested in a referral to [facility] for skin removal surgery. She will try [employer] alejandro again. UGI result reviewed. Continue PPI. She understands her meal plan is currently not ideal due to stressful life circumstances. She is due for labs. RTC 6mo. I encouraged pt to text me with any concerns between appointments. Orders: Orders Vitamin B1 Today Z90.3 - Acquired absence of stomach [part of] Hemoglobin A1c Today Z90.3 - Acquired absence of stomach [part of] Vitamin A Today Z90.3 - Acquired absence of stomach [part of] IRON PROFILE Today Z90.3 - Acquired absence of stomach [part of] Insulin Today Z90.3 - Acquired absence of stomach [part of] Complete Blood Count Auto Diff Today Z90.3 - Acquired absence of stomach [part of] Comprehensive Met. Panel Today Z90.3 - Acquired absence of stomach [part of] C Reactive Protein Today Z90.3 - Acquired absence of stomach [part of] TSH reflex Free T4 Today Z90.3 - Acquired absence of stomach [part of] Ferritin Today Z90.3 - Acquired absence of stomach [part of] Vitamin B12 and Folate Today Z90.3 - Acquired absence of stomach [part of] Lipid Panel Today Z90.3 - Acquired absence of stomach [part of] Vitamin D 25-OH Total Today Z90.3 - Acquired absence of stomach [part of] Zinc Today Z90.3 - Acquired absence of stomach [part of]
[2025-05-07 10:03] VITALS: BMI 29.3
== END 2025-05-07 10:18 | disposition home or self-care (01) ==
LOC: HO.HBS 10:00
PROVIDERS: PCP Internal Medicine; Visit Provider Physician Assistant Surgical
DX: E66.3 Overweight (principal); Z90.3 Acquired absence of stomach [part of]; K21.9 Gastro-esophageal reflux disease without esophagitis
CPT/HCPCS: 99214